=== PATIENT | female | born 1965 | race Caucasian/White ===

== ENCOUNTER 2022-08-24 18:04 | Emergency (ER) | payer BC, SELFPAY ==
--- NOTE | ~2022-08-24 | XR_ITS ---
EXAM: XR foot LT min 3V DATE: 08/24/2022 18:39 HISTORY: Dorsal, plantar and lateral left foot pain x 2 days. . COMPARISON: None available. FINDINGS: Normal mineralization. Nondisplaced transverse fracture of the proximal fourth metatarsal. No lytic or blastic lesion. Mild degenerative change at the first MTP joint and in the midfoot. Plan tar and Achilles enthesopathy. No erosion or periosteal change. Soft tissues within normal limits. IMPRESSION: Nondisplaced transverse fracture in the proximal fourth metatarsal. Reviewed, dictated and finalized at location K.
[2022-08-24 18:16] VITALS: BP 128/68; PULSE 72; RESP 16; TEMP 36.6; O2SAT 99
--- NOTE | 2022-08-24 18:29 | ED.LOWEXIN ---
HPI - Extremity Injury (Lower) General Chief Complaint: Extremity Injury, Lower Stated Complaint: left foot pain Source: patient and RN notes reviewed History of Present Illness HPI Narrative: 57-year-old female presents to urgent care with complaints of left dorsal foot pain since this morning. Patient states she was walking when she felt and heard a pop in her left dorsal foot. Patient states at that time she had pain radiate up her foot and leg. Patient does report a history of a spontaneous pelvic fracture 1 year ago. Patient denies any other injuries. Patient has taken Advil and applied ice with minimal relief. Some parts of this dictation were generated by voice recognition software and may contain typographical and/or grammatical inaccuracies. Related Data Home Medications Medication Instructions Recorded Confirmed meloxicam 15 mg tablet 15 mg PO DAILY 08/24/22 08/24/22 plecanatide 3 mg tablet (Trulance) 3 mg PO DAILY 08/24/22 08/24/22 Allergies Allergy/AdvReac Type Severity Reaction Status Date / Time No Known Allergies Allergy Unverified 08/13/21 12:46 Review of Systems Review of Systems: CONSTITUTIONAL: Denies fever, chills, or sweats. EYES: Denies visual changes, redness, or discharge. ENT: Denies otalgia and sore throat CARDIOVASCULAR: Denies chest pain, palpitations, or edema. RESPIRATORY: Denies cough or dyspnea. GASTROINTESTINAL: Denies abdominal pain, nausea, vomiting, or diarrhea. GENITOURINARY: Denies dysuria or hematuria. SKIN: Denies rash or itching. MUSCULOSKELETAL: Left foot pain NEUROLOGIC: Denies headache, numbness, or weakness. Pertinent positives per HPI. PMFSH Comments At the time of my signature, I reviewed and agree with the nursing past medical, surgical, social, and family history. There is no relevant family history pertinent to the patient complaint. Exam Narrative: GENERAL: This is a well-nourished, well-developed patient, in no apparent distress. HEAD: normocephalic, atraumatic. EYES: Sclera clear/white. Vision is grossly intact. EARS: External ears normal, auditory canals clear and without drainage. Hearing grossly intact. NOSE: External nose normal with no obvious nasal discharge, nares without redness, no rhinorrhea. THROAT: Mucous membranes moist, posterior pharynx clear. NECK: Neck supple, non-tender without lymphadenopathy, masses or thyromegaly. CARDIOVASCULAR: Regular rate RESPIRATORY: No respiratory distress SKIN: warm, intact with no suspicious lesions or rash, good texture and turgor. NEURO: awake, alert, and oriented to person, place and time. There were no obvious focal neurologic abnormalities. EXTREMITIES: No clubbing, cyanosis, or edema. No joint tenderness, effusion, or edema noted. Course Course Level of Care: Express Care Visit Vital Signs Vital signs: Vital Signs Temperature 98 F 08/24/22 18:16 Pulse Rate 72 08/24/22 18:16 Respiratory Rate 16 08/24/22 18:16 Blood Pressure 128/68 08/24/22 18:16 Pulse Oximetry 99 08/24/22 18:16 Oxygen Delivery Room Air 08/24/22 18:16 Temperature 98 F 08/24/22 18:16 Pulse Rate 72 08/24/22 18:16 Respiratory Rate 16 08/24/22 18:16 Blood Pressure 128/68 08/24/22 18:16 Pulse Oximetry 99 08/24/22 18:16 Oxygen Delivery Room Air 08/24/22 18:16 Reviewed MDM - Extremity Injury (Lower) MDM Narrative Medical decision making narrative: Use the RICE method at home. May take ibuprofen and/or Tylenol if needed. 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 ? ADM Date: 08/24/22Attending Dr: Ordering Physician: Peg Becerra
== END 2022-08-24 19:14 | disposition home or self-care (01) ==
PROVIDERS: Emergency Provider Nurse Practitioner Family
DX: S92.345A Nondisplaced fracture of fourth metatarsal bone, left foot, initial encounter for closed fracture (principal); X58.XXXA Exposure to other specified factors, initial encounter; Y93.01 Activity, walking, marching and hiking
CPT/HCPCS: 73630; 99214; G0463

== ENCOUNTER 2023-03-10 17:35 | Emergency (ER) | payer BC, SELFPAY ==
--- NOTE | ~2023-03-10 | XR_ITS ---
EXAMINATION: XR foot LT min 3V DATE: 03/10/2023 17:56 INDICATION: Left foot pain TECHNIQUE: Dorsoplantar, lateral, and 2 oblique views of the left foot were obtained. COMPARISON: 08/24/2022 FINDINGS: There are healing neck fractures of the proximal third and fourth metatarsals and in the mi d fifth metatarsal. No acute fracture is identified. 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 Posterior and plantar calcaneal enthesophytes are noted. IMPRESSION: 1. Healing metatarsal fractures without acute osseous abnormality identified. Reviewed, dictated and finalized at location F.
[2023-03-10 17:50] VITALS: BP 155/90; PULSE 79; RESP 16; TEMP 36.3; O2SAT 99
--- NOTE | 2023-03-10 18:30 | ED.GENADULT ---
HPI - General Adult General Chief complaint: Extremity Injury, Lower Stated complaint: Left Foot Pain Time Seen by Provider: 03/10/23 18:31 Source: patient, RN notes reviewed and old records reviewed Mode of arrival: ambulatory Limitations: no limitations History of Present Illness HPI narrative: 49-year-old female presents to the [facility] with complaints of left medial foot pain. Has a history of fractures from several months ago to the mid and lateral foot. Denies any known injuries. Patient states she has had fractures ?just happened. Related Data Home Medications Medication Instructions Recorded Confirmed meloxicam 15 mg tablet 15 mg PO DAILY 08/24/22 08/24/22 Allergies Allergy/AdvReac Type Severity Reaction Status Date / Time No Known Allergies Allergy Unverified 08/13/21 12:46 Review of Systems Review of Systems: All systems reviewed & are unremarkable except as noted in HPI and below Constitutional: Constitutional: Reports no additional constitutional complaints Eyes: Eyes: Reports no additional eye complaints ENT: Reports system reviewed and no additional complaints, except as documented Cardiovascular: Cardiovascular: Reports no additional cardiovascular complaints, Denies chest pain and Denies dyspnea Respiratory: Respiratory: Reports no additional respiratory complaints, Denies chest congestion, Denies cough and Denies dyspnea Gastrointestinal: Gastrointestinal: Reports no additional gastrointestinal complaints, Denies abdominal pain, Denies nausea and Denies vomiting Musculoskeletal: Musculoskeletal: Reports as per HPI Integumentary/Breasts: Skin/Breast: Reports system reviewed and no additional complaints, except as docu Neurologic: Reports system reviewed and no additional complaints, except as documented Psychiatric: Psychiatric: Reports no additional psychiatric complaints Allergic/Immunologic: Allergic/Immunologic: Reports no additional allergic/immunologic complaints PMFSH Comments At the time of my signature, I reviewed and agree with the nursing past medical, surgical, social, and family history. There is no relevant family history pertinent to the patient complaint. Exam Const: General: cooperative, healthy appearing, comfortable, no acute distress, well developed, alert and well nourished Nutritional Appearance: well nourished Orientation/consciousness: patient oriented x3 Limitations: no limitations HENMT: Head: normal to inspection Ears: hearing grossly normal bilaterally and external ears normal Face/Nose/Sinus: Normal external nose present, Normal nares present, Normal nasal mucous membranes and turbinates present, normal facial exam and face symmetric Face and sinus: normal facial exam and face symmetric Mouth: Yes Normal oral and palatal mucosa present, Yes lip normal and Yes moist mucous membranes Throat: posterior oropharynx normal and uvula midline Eyes: General: appearance normal, both eyes and all related structures Alignment and Position: alignment normal Periorbital: periorbital findings normal Pupils: Equal, round and reactive pupils present EOM: EOMs intact bilaterally Neck: Neck: normal visual inspection, full ROM, no lymphadenopathy and no meningeal signs Chest: Chest palpation & inspection: normal inspection of the chest Resp: Effort & Inspection: normal respiratory effort and able to speak in complete sentences Auscultation: clear to auscultation bilaterally, no crackles, no rales, no rhonchi and no wheezes Cardio: Rate: regular rate Rhythm: regular rhythm Back/Spine/Pelvis: Cervical Spine: cervical ROM normal Skin: General skin exam: normal color and no rashes or lesions noted Lesions: no lesions Rashes: no rashes Wounds: no wounds Neuro: General: patient oriented x3, gait normal, tone normal, moves all extremities and no meningeal signs Cranial nerves: Yes Equal, round and reactive pupils present Cognition (Neuro): normal cognition Speech:
== END 2023-03-10 18:43 | disposition home or self-care (01) ==
PROVIDERS: Emergency Provider Nurse Practitioner
DX: M79.672 Pain in left foot (principal); Z87.81 Personal history of (healed) traumatic fracture
CPT/HCPCS: 73630; 99213; G0463

== ENCOUNTER 2023-09-01 08:50 | Emergency (ER) | payer BC, SELFPAY ==
--- NOTE | ~2023-09-01 | XR_ITS ---
[XR ribs LT 2V w CXR 2V ] INDICATION: Left rib pain after fall TECHNIQUE: Frontal projection of the upper left ribs, frontal projection of the lower left ribs, obli que projection of all the left ribs, frontal inspiratory chest x-ray for interpretation. FINDINGS: There are no displaced rib fractures identified. There are no soft tissue abnormality see n. The lungs are clear. IMPRESSION: 1:No acute displaced rib fractures. Reviewed, dictated and finalized at location A.
[2023-09-01 09:08] VITALS: BP 119/71; PULSE 64; RESP 16; TEMP 36.6; O2SAT 100
--- NOTE | 2023-09-01 09:28 | ED.GENADULT ---
HPI - General Adult General Chief complaint: Fall Stated complaint: Fall Injury/Chin/Hands/Left Rib Pain Time Seen by Provider: 09/01/23 09:17 Source: patient, RN notes reviewed and old records reviewed Mode of arrival: ambulatory Limitations: no limitations History of Present Illness HPI narrative: 58-year-old [facility] to [facility]p fall onto asphalt at 0500 while walking. Pt complaint left posterior upper arm discomfort, left rib pain that is worse with movement. Pt endorses also striking chin during fall. Patient able to ambulate to exam room with steady gait. Patient able to speak in full sentences. No signs acute distress. Related Data Home Medications Medication Instructions Recorded Confirmed meloxicam 15 mg tablet 15 mg PO DAILY 08/24/22 09/01/23 omeprazole 20 mg capsule,delayed 20 mg PO DAILY 09/01/23 09/01/23 release phentermine 8 mg tablet (Lomaira) 8 mg PO DAILY 09/01/23 09/01/23 plecanatide 3 mg tablet (Trulance) 3 mg PO DAILY PRN Migraine Headache 09/01/23 09/01/23 Allergies Allergy/AdvReac Type Severity Reaction Status Date / Time No Known Allergies Allergy Unverified 08/13/21 12:46 Review of Systems Review of Systems: All systems reviewed & are unremarkable except as noted in HPI and below Constitutional: Constitutional: Reports no additional constitutional complaints Eyes: Eyes: Reports no additional eye complaints ENT: Reports as per HPI and Reports facial pain (chin ) Cardiovascular: Cardiovascular: Reports no additional cardiovascular complaints, Denies chest pain and Denies dyspnea Respiratory: Respiratory: Reports no additional respiratory complaints, Denies cough and Denies dyspnea Musculoskeletal: Musculoskeletal: Reports as per HPI, Denies abnormal gait, Denies back pain, Denies deformity and Reports arthralgias (left ribs) Neurologic: Reports system reviewed and no additional complaints, except as documented Psychiatric: Psychiatric: Reports no additional psychiatric complaints PMFSH Comments At the time of my signature, I reviewed and agree with the nursing past medical, surgical, social, and family history. There is no relevant family history pertinent to the patient complaint. Exam Const: General: cooperative, healthy appearing, comfortable, no acute distress, alert and well nourished Nutritional Appearance: well nourished Orientation/consciousness: patient oriented x3 Limitations: no limitations HENMT: Head: normal to inspection Ears: external ears normal Face/Nose/Sinus: Normal external nose present, Normal nares present, ecchymosis (mentum), No erythema and edema (mentum) Face and sinus: normal facial exam, no erythema and no edema Mouth: Yes Normal oral and palatal mucosa present Eyes: General: appearance normal, both eyes and all related structures Neck: Neck: normal visual inspection, full ROM and no meningeal signs Lymphatic: no lymphadenopathy noted and no lymphedema noted Chest: Chest palpation & inspection: normal inspection of the chest Resp: Effort & Inspection: normal respiratory effort, able to speak in complete sentences, normal respiratory pattern, no audible wheezes, not tachypneic, No prolonged expiratory phase and symmetric chest movement Auscultation: clear to auscultation bilaterally Other: Tenderness left ribs Cardio: Jugular venous distension: no JVD Rate: regular rate Rhythm: regular rhythm Back/Spine/Pelvis: Cervical Spine: cervical ROM normal Skin: General skin exam: normal color, no rashes or lesions noted and turgor normal Neuro: General: patient oriented x3, gait normal, moves all extremities and no meningeal signs Speech: normal speech Gait exam (Neuro): Normal gait present Extrem: General: normal to inspection, full ROM, capillary refill normal, no cyanosis and no edema Psych: Appearance: grossly normal and well kempt Course Course Emergency Course: Some parts of this dictation were generated by voice recogn
== END 2023-09-01 09:53 | disposition home or self-care (01) ==
PROVIDERS: Emergency Provider Nurse Practitioner Family
DX: M79.622 Pain in left upper arm (principal); S20.212A Contusion of left front wall of thorax, initial encounter; S00.83XA Contusion of other part of head, initial encounter; W19.XXXA Unspecified fall, initial encounter; Q79.60 Ehlers-Danlos syndrome, unspecified
CPT/HCPCS: 71046; 71100; 99213; G0463

== ENCOUNTER 2024-11-26 13:27 | Outpatient (CLI) | payer BC, SELFPAY ==
--- NOTE | ~2024-11-26 | XR_ITS ---
Left foot Technique: AP and lateral views were obtained. Clinical History: Lateral foot pain COMPARISON: 03/10/2023 Findings: No acute fracture or dislocation is seen. Healed fracture deformity the midshaft of the fif th metatarsal noted. Probable additional healed fracture fourth of the third and fourth metatarsal sh afts. Osseous alignment is anatomic. Plantar calcaneal spur present. Joint spaces are preserved witho ut erosive or degenerative change. Soft tissues are unremarkable. Impression: No acute abnormality. Healed fracture deformities of the third, fourth, and fifth metatarsal shafts. Reviewed, dictated and finalized at location . Impression: No acute abnormality. Healed fracture deformities of the third, fourth, and fifth metatarsal shafts.
--- OUTSIDE RECORDS SUMMARY | 2024-11-26 13:33 | XMS_ITS | Referral Summary ---
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 Name Role Phone Priscilla Plummer NP Primary Care Provide r Jake Frazier MD Unavailable Jose Martin KunzM Unavailable Elio Ghotra OT Unavailable Unavailable Luis Carlos Lopez MD Unavailable [phone] Encounters Date Type Department Care Team Description 11/20/2024 Telephone [facility] Surgery [facility] 6th [place] [address] Annmarie Ding RN 10/25/2024 7:40 AM CDT - 10/25/2024 11:59 PM CDT Hospital Encounter [facility] [address] [place] [address] [address] [place] [address] Discharge Disposition: Discharge to home or self care 10/25/2024 9:00 AM CDT Office Visit [facility] [address] [place] [address] [address] [place] [address] Iliana Nuñez PA Aftercare following right knee joint replacement surgery (Primary Dx) 10/15/2024 Documentation [facility] Occupational Therapy [address] [place] [address] Jodie Dc, SASKIA 09/26/2024 7:45 AM CDT Therapy [facility] Physical Therapy - [place] [address] Car Kilpatrick, PT S/P total knee arthroplasty, right (Primary Dx) 09/24/2024 7:45 AM CDT Therapy [facility] Physical Therapy - [place] [address] Car Kilpatrick, PT S/P total knee arthroplasty, right (Primary Dx) 09/21/2024 1:45 PM CDT Therapy [facility] Physical Therapy - [place] [address] Car Kilpatrick, PT S/P total knee arthroplasty, right (Primary Dx) 09/20/2024 1:00 PM CDT Telemedicine [facility] [address] [facility] [address] [place] [address] Iliana Nuñez PA Aftercare following right knee joint replacement surgery (Primary Dx) 09/18/2024 8:30 AM CDT Therapy [facility] Physical Therapy - [place] [address] Car Kilpatrick, PT S/P total knee arthroplasty, right (Primary Dx) 09/13/2024 10:15 AM CDT Therapy [facility] Physical Therapy - [place] [address] Car Kilpatrick, PT S/P total knee arthroplasty, right (Primary Dx) 09/11/2024 7:00 AM CDT Therapy [facility] [place] [address] Car Kilpatrick, PT S/P total knee arthroplasty, right (Primary Dx) 09/07/2024 [facility] Post Discharge Follow up phone call [facility] Surgery Care [address] [place] [address] Jessica Becca R. 09/04/2024 Plan of Care Documentation [facility] Physical Therapy - [place] [address] 09/04/2024 1:45 PM CDT Therapy [facility] Physical Therapy - [place] [address] Frank Fischer, PT S/P total knee arthroplasty, right (Primary Dx) 08/31/2024 Orders Only [facility] Medical [facility] Orthopedics and Sports Medicine [address] [place] [address] [address] [place] [address] Iliana Nuñez PA 08/30/2024 Documentation [facility] Social Work [address] [place] [address] Ayesha Lucio MSW 08/30/2024 Orders Only [facility] Medical [facility] Orthopedics and Sports Medicine [address] [place] [address] [address] [place] [address] Iliana Nuñez PA S/P total knee arthroplasty, right (Primary Dx) 08/30/2024 Telephone [facility] Orthopedics and Sports Medicine [address] [place] [address] [address] [place] [address] Iliana Nuñez PA 08/29/2024 7:17 AM CDT - 08/30/2024 10:47 AM CDT Hospital Encounter [facility] Surgery Care [address] [place] [address] Luis Carlos Lopez MD Primary osteoarthritis of right knee Discharge Disposition: Discharge to home or self care 08/29/2024 10:00 AM CDT - 08/29/2024 12:30 PM CDT Surgery [facility] Operating Room [address] [place] [address] Luis Carlos Lopez MD Right Total Knee Arthroplasty with Patella Resurfacing 08/29/2024 9:43 AM CDT Anesthesia Event [facility] Operating Room [address] [place] [address] Hamida Mak MD Reynolds, Ethan Emerson, MD from Last 3 Months Allergies Active Allergy Reactions Criticality Noted Date Comments Ciprofloxacin Other (See comments) Low 05/01/2024 E[facility]os-Danler Medications omeprazole (PriLOSEC) 20 mg capsule Take 1 capsule (20 mg total) by mouth daily as needed (heartburn) 08/25/19 23 Active ALPRAZolam (NIRAVAM) 0.25 mg disintegrating tablet Take 1 tablet (0.25 mg total) by mouth nightly as needed for anxiety Active plecanatide (Trulance) 3 mg tablet Take 1 tablet (3 mg total) by mouth daily as needed (constipation) Active rizatriptan (MAXALT) 10 mg tablet Take 1 tablet (10 mg total) by mouth once as needed for migraine May repeat in 2 hours if unresolved. Do not exceed 30 mg in 24 hours. Active cholecalciferol (VITAMIN D-3) 1,000 unit capsule Take 1 capsule (1,000 Units total) by mouth daily before breakfast Active multivitamin with minerals tablet Take 1 tablet by mouth daily before breakfast Active magnesium gluconate 200 mg tablet Take 1 tablet (200 mg total) by mouth nightly Active ascorbic acid (VITAMIN C) 500 mg tablet,chewableInd ications:Vitamin deficiency prevention Take 1 tablet/chew tab (500 mg total) by mouth daily 30 tablet/chew tab 08/31/19 25 Active aspirin 81 mg enteric coated tabletIndications: Deep Vein Thrombosis Prevention Take 1 tablet (81 mg total) by mouth 2 (two) times a day 84 tablet 08/31/19 25 Active Additional Information Patient not taking.Reported on 10/25/2024 celecoxib (CeleBREX) 200 mg capsuleIndications :Pain Take 1 capsule (200 mg total) by mouth 2 (two) times a day 84 capsule 08/31/19 25 Active Additional Information Patient not taking.Reported on 10/25/2024 ondansetron ODT (ZOFRAN-ODT) 4 mg disintegrating tabletIndications: nausea and vomiting Take 1 tablet (4 mg total) by mouth every 6 (six) hours as needed for nausea or vomiting 20 tablet 2 08/31/19 25 Active Additional Information Patient not taking.Reported on 10/25/2024 oxyCODONE-acetamin ophen (PERCOCET) 5-325 mg per tabletIndications: Pain Take 1 tablet by mouth every 4 (four) hours as needed for pain 40 tablet 08/31/19 25 Active Additional Information Patient not taking.Reported on 10/25/2024 senna-docusate (PERICOLACE) 8.6-50 mgIndications:cons tipation Take 2 tablets by mouth 2 (two) times a day 60 tablet 2 08/31/19 25 Active Additional Information Patient not taking.Reported on 10/25/2024 traMADoL (ULTRAM) 50 mg tablet Take 1 tablet (50 mg total) by mouth every 6 (six) hours as needed for pain 30 tablet 09/01/19 25 Active Active Problems Problem Noted Date Diagnosed Date Arthritis of carpometacarpal (CMC) joint of left thumb 11/08/2024 Aftercare following right knee joint replacement surgery 09/19/2024 Osteoarthritis of carpometac arpal (CMC) joint of both thumbs 04/27/2024 Arthritis of carpometacarpal (CMC) joints of bot h thumbs 04/27/2024 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 On meloxicam. Continue joint protection. Assessment & Plan (04/17/2024 11:12 AM GLASSWARE DEFECT REPAIRER): 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 On meloxicam. Continue joint protection. Polyarthralgia 06/14/2023 Overview (04/17/2024): Labs 06/14/2023: CBC: MPV 12.6, but otherwise WNL; CMP: Glucose 101, but otherwise WNL; CRP/ESR WNL; hepatitis-B/C WNL; vitamin-D 28, but otherwise WNL; PTH WNL, ionized calcium 5.1 WNL, Avise 06/16/2023: Positive HEVER by Matilde only, positive thyroglobulin IgG Avise 04/03/2024: Positive thyroglobulin, positive TPO, but otherwise negative Avise Labs 03/30/2024: CBC: Platelets 422, otherwise WNL; CMP fallen CO2 33, but otherwise WNL; CRP 54.3 milligrams/liter and ESR of 60. US right hand/wrist (06/23/23): Marked spurring in the 1st CMC joint. Moderate spurring in the lunate. Moderate synovial thickening in the 2nd PIP joint. No significant joint effusions, power doppler, or erosive changes appreciated on US examination. Xray bilat hands reveal degenerative changes in bilat wrists. Xray bilat feet reveal bilat hallux valgus with calcaneal spurs and right 1st MTP OA and left 2nd-5th stress fractures X-ray L-spine/SI joints 03/30/2024: mild retrolisthesis of L3 through L5. Mild L1-L4, severe L4-L5 and mild L5-S1 degenerative disc disease with severe inferior lumbar facet OA. Left anterior pelvic fixation screws noted Right foot MRI without contrast 04/04/2024: Degenerative changes at the 1st MTP joint with joint space narrowing. May be peripheral periarticular erosion raising question of gout but no calcified tophi seen. Diffuse soft tissue swelling over the dorsum of the foot without focal hematoma Assessment & Plan (05/03/2024 2:49 PM GLASSWARE DEFECT REPAIRER): Aleta is a pleasant 59-year-old female that initially presented to our office for re-evaluation on 03/30/2024. In mid February 2024, she developed sudden-onset pain, stiffness, swelling involving the right foot. X-ray per podiatry was unrevealing for fracture. Went to the ED on 2 separate occasions with negative lower extremity Doppler assessing for DVT. She was recently evaluated with Cardiology and had a repeat lower extremity Doppler, which was also negative for DVT. Was prescribed a prednisone taper from 60 mg daily along with antibiotics in the ED without significant benefit. She continued to experience chronic pain, stiffness, and swelling in the right foot/ankle along with discomfort in the bilateral knees (R>L), elbows, wrists/hands with chace LE edema (worse on the right). Symptoms most notable in the morning with a.m. stiffness for 2-3 hours. Symptoms worsened with use. Had been managing symptoms with meloxicam 15 mg daily. Repeat Avise 04/03/2024 displayed positive thyroglobulin and TPO antibodies with no other significant autoantibodies. Labs 03/30/2024 displayed a CRP of 54.3 milligrams/liter and ESR 60. Right foot MRI without contrast, as above, displayed degenerative change in the 1st MTP joint with possible periarticular erosion along with diffuse soft tissue swelling. L- spine/SI joint x-ray 03/30/2024 displayed mild retrolisthesis of L3 through L5 with mild L1-L4, severe L4-L5, and mild L5-S1 degenerative disc disease with severe inferior lumbar facet OA. Left anterior pelvic fixation screws noted. No evidence for sacroiliitis. We have had difficulty assessing the cause for current symptoms. Her lack of response to high dose of prednisone made a inflammatory arthritis less likely. She has no current autoantibodies to suggest an inflammatory arthritis, although has had elevations in inflammatory markers. At last visit, we did try Kenalog IM injection, which offered partial relief. Unfortunately, she continues to have scattered tenderness across many of her joints with no obvious joint synovitis. At this time, see no obvious evidence to suggest an underlying autoimmune disease. Suspect that EDS in degenerative arthritis contributing to her joint arthralgias. Will have follow up as needed or if any new symptoms arise. Seen with Dr. Frazier. Assessment & Plan (04/17/2024 11:32 AM GLASSWARE DEFECT REPAIRER): Aleta is a pleasant 58-year-old female that presented to our office for re- evaluation on 03/30/2024. In mid February, she developed sudden-onset pain, stiffness, swelling involving the right foot. X-ray per podiatry was unrevealing for fracture. Went to the ED on 2 separate occasions with negative lower extremity Doppler assessing for DVT. He was recently evaluated with Cardiology and had a repeat lower extremity Doppler, which was also negative for DVT. Was prescribed a prednisone taper from 60 mg daily along with antibiotics in the ED without significant benefit. She continues to note chronic pain, stiffness, and swelling in the right foot/ankle along with discomfort in the bilateral knees (R>L), elbows, wrists/hands with chace LE edema (worse on the right). Symptoms are most notable in the morning with a.m. stiffness for 2-3 hours. Symptoms are worsened with use. Has been managing symptoms with meloxicam 15 mg daily. Repeat Avise 04/03/2024 displayed positive thyroglobulin and TPO antibodies with no other significant autoantibodies. Labs 03/30/2024 displayed a CRP of 54.3 milligrams/liter and ESR 60. Right foot MRI without contrast, as above, displayed degenerative change in the 1st MTP joint with possible periarticular erosion along with diffuse soft tissue swelling. L-spine/SI joint x-ray 03/30/2024 displayed mild retrolisthesis of L3 through L5 with mild L1-L4, severe L4-L5, and mild L5-S1 degenerative disc disease with severe inferior lumbar facet OA. Left anterior pelvic fixation screws noted. No evidence for sacroiliitis. Difficult to assess the cause for her current symptoms at this time. Her lack of response to high doses of prednisone does make an inflammatory arthritis less likely. Has no current autoantibodies to suggest an inflammatory arthritis, although does have elevations in inflammatory markers. Would like to trial a Kenalog IM injection to monitor for potential benefit. Due to burden of disease, will administer kenalog 100 mg IM injection, in office, today. If she has lack of response to Kenalog IM injection, would consider right knee MRI, although is scheduled to see knee Orthopedics on 04/24. Follow-up 2 weeks. Sooner if needed. Seen with Dr. Frazier. >55 minutes spent reviewing patient's records, gathering pertinent medical history, performing physical exam, counseling/educating patient about diagnosis and treatment plan, and documenting today's office visit in the EMR. Assessment & Plan (03/30/2024 2:09 PM GLASSWARE DEFECT REPAIRER): Aleta is a pleasant 58-year-old female previously seen in our office 05/2023, which she was previously noted to have degenerative arthritis (most notable in the cmc joints) along with hypermobility. She is presenting for re-evaluation. In mid February, she developed sudden-onset pain, stiffness, swelling in the right foot. X-ray per podiatry was unrevealing for a fracture. Has been to the ED on 2 separate occasions with negative lower extremity Doppler assessing for DVT. Was prescribed prednisone taper from 60 mg daily along with antibiotics at the ED without significant benefit. Otherwise, she continues to note discomfort in the bilateral CMC joints/wrists, R>L knee, elbows, lower back with inflammatory symptoms. Has considerable swelling in the right lower extremity, including the right foot/ankle and right knee along with 2+ right lower extremity edema. Otherwise, scattered swollen joints, as above. There is concern for an inflammatory arthritis at this time, although would be atypical given her lack of response to high dose of prednisone. Will evaluate further with appropriate serologies and proceed with right foot/ankle MRI ordered for Podiatry. Follow-up 2 weeks. Sooner if needed. Seen with Dr. Frazier. >60 minutes spent reviewing patient's records, gathering pertinent medical history, performing physical exam, counseling/educating patient about diagnosis and treatment plan, and documenting today's office visit in the EMR. Assessment & Plan (06/28/2023 3:34 PM GLASSWARE DEFECT REPAIRER): Aleta is a pleasant 58-year-old female presented for further evaluation regarding chronic joint pain in the hands/wrists (CMC>remaining joints), feet, hip/groin, and lower back for the past year plus. Denies inflammatory symptoms. Has tried several prescription NSAIDs without benefit. Otherwise, has chronic sicca symptoms and occasional aphthous ulcers with no other recent systemic complaints. Has no obvious synovitis on exam. Avise 06/16/2023 displayed a positive HEVER by Matilde only with positive thyroglobulin and no other significant autoantibodies with CRP/ESR WNL. Right hand/wrist ultrasound displayed 1st CMC spurring with moderate spurring of the lunate and no other significant inflammatory findings. Degenerative changes were noted in the bilateral wrists along with bilateral hallux valgus and calcaneal spurs along with right 1st MTP OA and left 2nd through 5th stress fractures on x-rays. See no evidence to suggest an underlying inflammatory arthritis at this time. Regarding her CMC oa, recommended physical therapy for all to be fitted for CMC bracing. Could consider CMC intra-articular injections, if symptoms persist. Continue to follow with pain management regarding chronic lower back pain. Will also send to Physical therapy regarding chronic lower back pain and hypermobility. Will have her otherwise follow up as needed or if any new symptoms arise. Assessment & Plan (06/14/2023 2:43 PM GLASSWARE DEFECT REPAIRER): Aleta is a pleasant 58-year-old female presenting for further evaluation regarding chronic joint pain in the hands/wrists (CMC>remaining joints), feet, hip/groin, and lower back for the past year plus. Denies inflammatory symptoms. Has tried several prescription NSAIDs without benefit. Otherwise, has chronic sicca symptoms and occasional aphthous ulcers with no other recent systemic complaints. Questionable fullness of the right 2nd and 3rd MCP joint with few tender joints, as above. At this, suspect the majority of her joint complaints are due to mechanical/degenerative causes. With that said, inflammatory arthritis certainly does remain possible. Will evaluate further with appropriate serologies, radiographs, right hand/wrist ultrasound. Follow-up 2 weeks. Sooner if needed. Seen with Dr. Frazier. Osteoporosis 06/14/2023 Assessment & Plan (06/28/2023 3:33 PM GLASSWARE DEFECT REPAIRER): Most recent DEXA scan displayed osteopenia. With that said, given numerous fragility fractures, this appears most consistent with osteoporosis. Given her osteoporosis and fragility fracture history, would recommend treatment with Evenity, Forteo, or Tymlos. Will check vitamin-D level and few additional labs today. Is scheduled to see bone health in January. Assessment & Plan (06/14/2023 2:45 PM GLASSWARE DEFECT REPAIRER): Most recent DEXA scan displayed osteopenia. With that said, given numerous fragility fractures, this appears most consistent with osteoporosis. Given her osteoporosis and fragility fracture history, would recommend treatment with Evenity, Forteo, or Tymlos. Will check vitamin-D level and few additional labs today. Is scheduled to see bone health in January. Vitamin D deficiency 11/09/2022 Assessment & Plan (06/28/2023 3:33 PM GLASSWARE DEFECT REPAIRER): Recent labs displayed mildly low vitamin-D. On OTC calcium and vitamin-D. Recommended checking her current OTC dosing, as will likely need to increase this. 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 Patient reports multiple spontaneous fractures Plan: Continue calcium and vitamin D She will be doing bone density next month and she will get me a copy The presence of bone fractures is not explained by osteopenia and may need further investigations. I recommend that she will be referred to bone health specialist @ [facility] or [facility] if bone density still stable . Patient understands and agrees with above plan. Abdominal pain 03/04/2021 Arthralgia of multiple joints 10/25/2018 LOYDA (generalized anxiety disorder) 10/25/2018 Nasal polyp 10/25/2018 Hypothyroidism, adult 07/24/2014 Overview (06/24/2022): Begin supplement 07/2014. Some tingling of the fingers Begin supplement 07/2014. Some tingling of the fingers Deviated nasal septum 02/10/2012 GERD (gastroesophageal reflux disease) 0 Insomnia 10/24/2009 Depression 12/29/2008 Arthritis 10/18/2008 Overview (06/24/2022): Wrists, elbows, and knees Wrists, elbows, and knees Migraine without aura 10/18/2008 Resolved Problems Problem Noted Date Diagnosed Date Resolved Date Primary osteoarthritis of right knee 04/24/2024 09/19/2024 Social History Tobacco Use Types Packs/Day Years Used Date Smoking Tobacco: Never Smokeless Tobacco: Never Tobacco Cessation:Counseling Given: Not Answered Alcohol Use Standard Drinks/Week Comments No 0 (1 standard drink = 0.6 oz pur e alcohol) AUDIT-C Answer Date Recorded Q1: How often do you have a drink containing alc ohol? Monthly or less 08/29/2024 Q2: How many drinks containi ng alcohol do you have on a typical day when you are drinking? 1 or 2 08/29/2024 Q3: How often do you have si x or more drinks on one occasion? Never 08/29/2024 PHQ-2 Answer Date Recorded PHQ-2 Total Score (If total score is 3 or more points, staff should administer the PHQ-9) 0 08/29/2024 Personal Safety Answer Date Recorded Have you ever been in or are you currently in a harmful physical or emotional relationship or is someone making you feel afraid or unsafe? 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 Not on file Not on file Not on file Last Filed Vital Signs Vital Sign Reading Time Taken Comments Blood Pressure 137/77 10/25/2024 8:48 AM CDT Pulse 78 10/25/2024 8:48 AM CDT Temperature 35.8 C (96.5 F) 08/30/2024 7:32 AM CDT Respiratory Rate 18 08/30/2024 7:32 AM CDT Oxygen Saturation 98% 08/30/2024 7:32 AM CDT Inhaled Oxygen Concentration - - Weight 103 kg (227 lb) 10/25/2024 8:48 AM CDT Height 171.5 cm (5' 7.5) 10/25/2024 8:48 AM CDT Body Mass Index 35.03 10/25/2024 8:48 AM CDT Plan of Treatment Upcoming Encounters Date Type Department Care Team (Latest Contact Info) Description 01/10/2025 7:30 AM CDT Hospital Encounter [facility] [address] [place] [id number] Najma Wagner MD PhD [address] [place] [address] 01/10/2025 7:30 AM CDT - 01/10/2025 10:20 AM CDT Surgery [facility] Operating [facility] [address] [place] [id number] Najma Wagner MD PhD [address] [place] [address] TRAPEZIECTOMY - INTERNAL BRACE - LEFT thumb trapeziectomy with tendon suspensionplasty and Arthrex internal brace augmentation Scheduled Procedures Name Priority Associated Diagnoses Date/Ti me TRAPEZIECTOMY - INTERNAL BRACE Arthritis of carpometacarpal (CMC) joint of left thumb 01/10/2025 7:30 AM CDT Medical Devices Implanted Type Area Line Person Device Identifier Shelf Expiration Date Model / Serial / Lot [employer] Suture Snyder Knotless Fibertak Resorbable [id number] - S0 - [id number] Implanted:Qty: 1 on 05/10/2024 by Najma Wagner MD PhD at [facility] Other - see comments Right: Hand [employer] [id number] 01/13/2029 [id number] / 0 / [id number] [employer] Corkscrew Fiberwire 2.2mm 4mm 17.9mm 2 Needle Wire Foot Ankle 2-0 [id number] - S0 - [id number] Implanted:Qty: 1 on 05/10/2024 by Najma Wagner MD PhD at [facility] Other - see comments Right: Hand [employer] [id number] 02/12/2029 AR-1318FT / 0 / [id number] Synthes 7.3mm 8.2mm 2.9mm 130mm Cannulated Self Tap Self Drill 209.730 - [id number] Implanted:Qty: 1 on 03/01/2022 by Farhat Owens MD at [facility] Screw Synthes I 209.730 / / 209.730 [employer] Cement Bone Medium Viscosity Half Dose Hemiarthroplpasty Cmw 20gm Pmma 3322-020 - [id number] Implanted:Qty: 1 on 08/29/2024 by Luis Carlos Lopez MD at [facility] Right: Knee [employer] 12/13/2026 3322-020 / / [id number] [employer] Attune Fb Tib Base Sz 5 Por [id number] - [id number] Implanted:Qty: 1 on 08/29/2024 by Luis Carlos Lopez MD at [facility] Right: Knee [employer] [id number] 03/15/2033 [id number] / / [id number] [employer] Attune Cruciate Retain Cementless Knee Right 5 Component Femoral [id number] - [id number] Implanted:Qty: 1 on 08/29/2024 by Luis Carlos Lopez MD at [facility] Right: Knee [employer] [id number] 07/13/2034 [id number] / / [id number] [employer] Attune 32mm Cemented Medialize Knee Dome Patellar Aox Sterile [id number] - [id number] Implanted:Qty: 1 on 08/29/2024 by Luis Carlos Lopez MD at [facility] Right: Patella [employer] [id number] 06/15/2032 [id number] / / [id number] [employer] Insert Tibial Knee Fixed Rm Posterior Stabilized Attune 7mm Size 5 Polyethylene [id number] - [id number] Implanted:Qty: 1 on 08/29/2024 by Luis Carlos Lopez MD at [facility] Right: Patella [employer] 06/15/2032 [id number] / / [id number] Procedures Procedure Name Priority Date/Time Associated Diagnosis Comments XR KNEE RIGHT 3 VIEWS Schedule Routine, Read Routine (OP Routine) 10/25/2024 8:38 AM CDT Aftercare following right knee joint replacement surgery EGFR Routine 08/30/2024 3:22 AM CDT CBC WITHOUT DIFFERENTIAL Routine 08/30/2024 3:22 AM CDT BASIC METABOLIC PANEL Routine 08/30/2024 3:22 AM CDT SURGICAL PATHOLOGY Routine 08/29/2024 2: 10 PM CDT Primary osteoarthritis of right knee XR KNEE RIGHT 1 OR 2 VIEWS IP Routine 08/29/2024 11:52 AM CDT ANESTHESIA SPINAL BLOCK Routine 08/29/2024 9:58 AM CDT ARTHROPLASTY TOTAL KNEE 08/29/2024 9:22 AM CDT Primary osteoarthritis of right knee Special Needs Patella Resurfacing- [Robotic, Depuy- Attune and Patella], Velys, Cooling Unit-Polar Care, 1 Liter Beta Rinse, Pt to Stay PROTIME-INR STAT 08/29/2024 7:47 AM CDT APTT STAT 08/29/2024 7:47 AM CDT HEPATITIS C ANTIBODY Routine 06/14/2023 2:42 PM GLASSWARE DEFECT REPAIRER Polyarthralgia Osteoporosis, unspecified osteoporosis type, unspecified pathological fracture presence Encounter for long-term (current) use of medications DIGITAL MAMMOGRAPHY Routine 03/15/2014 12:37 PM CDT from Last 3 Months or Most Recently Relevant to Health Maintenance Results * XR Knee Right 3 Views (10/25/2024 8:38 AM CDT) Anatomical Region Laterality Modality Lower Extremities, Knee Right Digital Radiography Narrative 10/25/2024 9:15 AM CDT X-ray of the right knee viewed and interpreted. There is no evidence of fracture, subluxation, or bony abnormality. Knee arthroplasty in good position with no interval change. us Iliana FUNG IMG XR PROCEDURES Fin al Result * eGFR (08/30/2024 3:22 AM CDT) eGFR 90 >=60 mL/min/1. 73 m2 Comment: Interpretive Data Reference Interval Normal >/= 90 mL/min/1.73m2 Mildly decreased* 60 - 89 mL/min/1.73m2 Mildly to moderately decreased 45 - 59 mL/min/1.73m2 Moderately to severely decreased 30 - 44 mL/min/1.73m2 Severely decreased 15 - 29 mL/min/1.73m2 Kidney Failure < 15 mL/min/1.73m2 *Relative to young adult level Estimated glomerular filtration rate is determined by the 2020 CKD-EPI equation recommended by the National Kidney Foundation (A Unifying Approach to GFR Estimation: Recommendations of the NKF-ASK Task Force on Reassessing the Inclusion of Race in Diagnosing Kidney Disease, JASN 2020). The CKD-EPI equation should not be used for patients with unstable renal function and has not been validated in children and those over 70. Current interpretive data was last reviewed 2021. Blood 08/30/2024 3:22 AM CDT 08/30/2024 4:29 AM CDT us Iliana FUNG LAB BLOOD ORDERABLES Final Result [facility] Department [place] [address] * (ABNORMAL) CBC without differential (08/30/2024 3:22 AM CDT) WBC 12.29(H) 3.80 - 9.90 K/cumm Hgb 11.5(L) 11.9 - 15.5 g/dL [facility] Hct 34.1(L) 35.6 - 45.5 % [facility] Plt 248 150 - 400 K/cumm [facility] MPV 11.6 9.1 - 12.3 fL [facility] RBC 3.78(L) 3.90 - 5.20 M/cumm [facility] MCV 90.2 81.3 - 96.4 fL [facility] MCH 30.4 27.1 - 33.3 pg [facility] MCHC 33.7 32.3 - 35.7 g/dL [facility] RDW CV 12.0 11.1 - 14.9 % [facility] RDW SD 39.5 35.7 - 48.1 fL [facility] NRBC abs 0.00 0.00 - 0.01 K/cumm [facility] ([place]) Blood 08/30/2024 3:22 AM CDT 08/30/2024 4:28 AM CDT us Iliana FUNG LAB BLOOD ORDERABLES Final Result [facility] Department [place] [address] * Basic metabolic panel (08/30/2024 3:22 AM CDT) Sodium 137 135 - 145 mmol/L Potassium, pl 4.7 3.3 - 4.9 mmol/L [facility] Chloride 103 97 - 110 mmol/L [facility]) CO2 23 22 - 32 mmol/L [facility] Anion gap 12 2 - 15 mmol/L [facility] BUN 17 6 - 25 mg/dL [facility] Creatinine 0.76 0.60 - 1.10 mg/dL [facility] Glucose 157 70 - 199 mg/dL [facility] Comment: Interpretive Data Fasting glucose >/= 126 mg/dl is diagnostic for diabetes. Fasting is defined as no caloric intake for at least 8 hours. Fasting glucose between 100 mg/dl to 125 mg/dl is diagnostic of prediabetes. In a patient with classic symptoms of hyperglycemia or hyperglycemic crisis, a random glucose >/= 200 mg/dl is diagnostic for diabetes. In the absence of unequivocal hyperglycemia, results should be confirmed by repeat testing. The classification and Diagnosis of Diabetes Diabetes Care 2021; 46: S19-S40. Current interpretive data was last revised 2022. Calcium 8.8 8.5 - 10.3 mg/dL [facility] Blood 08/30/2024 3:22 AM CDT 08/30/2024 4:29 AM CDT us Iliana FUNG LAB BLOOD ORDERABLES Final Result [facility] ([place] 1 [facility] Department [place] [address] * Surgical pathology (08/29/2024 2:10 PM CDT) Tissue (Bone Fragment(s),) 08/29/2024 10:23 AM CDT Narrative PATHOLOGY [facility] ([place] - 08/31/2024 9:51 AM CDT EPIC results best viewed via link to PDF [facility] Department of Pathology [address] [place] [id number] Note to Patients: This report may contain a detailed description of human tissue sent by a health care provider to the laboratory for pathologic evaluation. The content of this report is essential for diagnosis and may provide important critical findings. This information may be unfamiliar to patients to review without a medical professional present. It is advised that the patient review this report in the presence of a health care provider who can answer questions and explain the details. Final Report Patient Name: ALETA YUN Address: [address] [place] [address] Gender: F : 1965 (Age: 59) Service: Surgery Location: [facility] Hospital #: [id number] Patient Type: [facility] OP in bed Taken: 08/29/2024 Received: 08/29/2024 Accessioned: 08/29/2024 Reported: 08/31/2024 Physician(s):Dr. Luis Carlos Lopez M.D. Diagnosis: Bone and soft tissue, right total knee arthroplasty: - Histologic changes consistent with degenerative joint disease. Alphonso Hayes MD Report Electronically Reviewed and Signed Out By Alphonso Hayes MD 08/31/2024 09:51:18 Specimen(s) Received: A: Right knee bone and tissue Microscopic Description: A decalcified section shows erosion and destruction of the articular cartilage. The marrow space appears fatty with focal hematopoietic marrow elements. Also seen are benign-appearing fragments of soft tissue, partially lined by bland synovium. There is no evidence of malignancy. The histologic changes are consistent with the clinical impression of degenerative joint disease. Clinical History: Osteoarthritis of right knee. Right total knee arthroplasty. Gross Description: The container is labeled ALETA YUN and right knee. It is a 7 x 6 x 4 cm in aggregate of irregularly-shaped fragments of bone and an approximate 10 cc aggregate of soft tissue consisting of adipose tissue, portions of menisci and some synovium. Recognizable pieces of bone include the tibial plateau and portions of femoral condyles. Some of the bone fragments are covered by articular cartilage showing varying degrees of degenerative changes that include eburnation, pitting and roughened granularity. Decalcified and represented in two cassettes. Uriah Hutchinson R.N. P.Chirag./Marizol Martinez M.D. REPORT IMAGES AND SCANNED DOCUMENTS, IF INCLUDED, ONLY VIEWABLE IN PDF VERSION OF REPORT The performance characteristics of some immunohistochemical stains, fluorescence in-situ hybridization tests and immunophenotyping by flow cytometry cited in this report (if any) were determined by the Surgical Pathology Department at [facility] as part of an ongoing quality control operator program and in compliance with federally mandated regulations drawn from the Clinical Laboratory Improvement Act of 1988 (CLIA '88). Some of these tests rely on the use of analyte specific reagents and are subject to specific labeling requirements by the US Food and Drug Administration. Such diagnostic tests may only be performed in a facility that is certified by the Department of Health and Human Services as a high complexity laboratory under CLIA '88. The FDA has determined that such clearance or approval is not necessary. This test is used for clinical purposes. It should not be regarded as investigational or for research. Nevertheless, federal rules concerning the medical use of analyte specific reagents require that the following disclaimer be attached to the report: This test was developed and its performance characteristics determined by the Surgical Pathology Department [facility]. It has not been cleared or approved by the U. S. Food and Drug Administration. Note for decalcified specimens: This assay has not been validated on decalcified tissues. Results should be interpreted with caution given the possibility of false negativity on decalcified specimens Luis Carlos Lopez MD LAB PATHOLOGY ORDERABLES Final Result [facility] ([place]) [address] [place] [id number] * XR Knee Right 1 or 2 View (08/29/2024 11:52 AM CDT) Anatomical Region Laterality Modality Lower Extremities, Knee Right Computed Radiography 08/29/2024 3:0 8 PM CDT Narrative 08/29/2024 3:11 PM CDT EXAM DESCRIPTION: XR KNEE RIGHT 1 OR 2 VIEWS REASON FOR STUDY: in pacu s/p right tka Right knee osteoarthritis FINDINGS: Two views submitted with comparison 04/24/2024. Right total knee arthroplasty is in near anatomic alignment. No acute fracture. Soft tissue swelling is present. IMPRESSION: Interval right total knee arthroplasty in near anatomic alignment. THIS IS AN ELECTRONICALLY VERIFIED FINAL REPORT 08/29/2024 3:11 PM - Electronically signed by Jaxson Segura M.D. MF: [id number] Report ID: [id number] Reading Location: [id number] Procedure Note Jaxson Segura MD - 08/29/2024 EXAM DESCRIPTION: XR KNEE RIGHT 1 OR 2 VIEWS REASON FOR STUDY: in pacu s/p right tka Right knee osteoarthritis FINDINGS: Two views submitted with comparison 04/24/2024. Right total knee arthroplasty is in near anatomic alignment. No acute fracture. Soft tissue swelling is present. IMPRESSION: Interval right total knee arthroplasty in near anatomic alignment. THIS IS AN ELECTRONICALLY VERIFIED FINAL REPORT 08/29/2024 3:11 PM - Electronically signed by Jaxson Segura M.D. MF: [id number] Report ID: [id number] Reading Location: [id number] us Iliana FUNG IMG XR PROCEDURES Fin al Result * Spinal Block (08/29/2024 9:58 AM CDT) Alphonso Ring CRNA - 08/29/2024 9:58 AM CDT Alphonso Waldrop CRNA 08/29/2024 9:58 AM Spinal Block Patient location: OR End time: 08/29/2024 9:48 AM Reason for block: primary anesthetic Staff: Supervising provider: Hamida Mak MD Placed by: PROFESSOR OF ART:Alphonso Waldrop CRNA Procedure prep: Preprocedure checklist: patient identified, procedure contraindications assessed, site marked, procedure consent, surgical consent, IV checked, risks, benefits and alternatives discussed, monitors and equipment checked and timeout performed Patient position: sitting Procedure performed while patient: sedate with meaningful contact Monitoring: oximetry and blood pressure Prep solution: chlorhexadine/alcohol PPE: provider hat/mask, sterile gloves and sterile drape Skin infiltrated with lidocaine 1%: yes Spinal: Approach: midline Introducer used: yes Location: L3-4 Spinal injection: CSF demonstrated, no aspiration of heme and no paresthesias noted Number of attempts: 1 Spinal Needle: Needle type: Eva Needle gauge: 25 G Needle length: 5 cm Assessment: Sensory deficit - left: full eval pending Sensory deficit - right: full eval pending Events: patient tolerated procedure well with no complications Additional comments: Placed by SHAD Bailey us Hamida Mak MD ANESTHESIA ORDERABLES Fi nal Result * aPTT (08/29/2024 7:47 AM CDT) aPTT 36 28 - 38 sec [facility] Comment: Interpretive Data Heparin therapeutic range: 66.0 - 100.0 seconds. Range based on correlation with therapeutic heparin activity range of 0.3 - 0.7 Units/mL. Current interpretive data was last revised on 2023. Blood 08/29/2024 7:47 AM CDT 08/29/2024 8:03 AM CDT us Luis Carlos oLpez MD LAB BLOOD ORDERABLES Fin al Result [facility] ([facility] 1 [facility] Department [place] [address] * Protime-INR (08/29/2024 7:47 AM CDT) PT 11.4 9.7 - 13.0 sec [facility]) INR 1.05 0.90 - 1.20 [facility] ([place]) Comment: Interpretive data Oral anticoagulant therapeutic ranges: Venous thromboembolism prophylaxis or treatment: 2.0-3.0 CARDIOLOGY Standard range: 2.0-3.0 High-intensity range: 2.5-3.5 Refer to indication-specific guidelines for appropriate target ranges for prosthetic heart valve replacement. Current interpretive data was last revised on 2019. Blood 08/29/2024 7:47 AM CDT 08/29/2024 8:03 AM CDT Luis Carlos Lopez MD LAB BLOOD ORDERABLES Fin al Result Performing Organization Address City/[facility] Co de Phone Number [facility] [address] [facility] Department [place] [address] * Hepatitis C antibody Blood (06/14/2023 2:42 PM GLASSWARE DEFECT REPAIRER) Hep C Ab NON-REACTI VE NON-REACT [facility] Comment: HCV antibody was non-reactive. There is no laboratory evidence of HCV infection. In most cases, no further action is required. However, if recent HCV exposure is suspected, a test for HCV RNA (test code 40239) is suggested. For additional information please refer to http://[email or web address].GrownOut/faq/BTC67m8 (This link is being provided for informational/ educational purposes only.) Blood 06/14/2023 2:42 PM GLASSWARE DEFECT REPAIRER 06/14/2023 2:42 PM GLASSWARE DEFECT REPAIRER Jaxson FUNG LAB MICROBIOLOGY - GENE RAL ORDERABLES Final Result [facility] [address] [place] [address] * DIGITAL MAMMOGRAPHY (03/15/2014 12:37 PM CDT) Anatomical Region Laterality Modality Breast Mammography 03/15/2014 12:3 7 PM CDT Narrative 03/15/2014 10:48 PM CDT Mammogram Performed by: CD Screening Mamm Bi Acc#: [id number] DATE OF EXAM: Mar 15 2014 CLINICAL HISTORY: Baseline screening. RESULT: Superior-inferior and lateral oblique views were obtained. The left breast is slightly larger than the right. There is a mild amount of fibroglandular tissue. No neoplasm is identified, and no pathological calcification or skin thickening is seen. Digital technology was employed plus computer-aided detection software (R2) was utilized in interpretation of these images. IMPRESSION: 1. MILD FIBROGLANDULAR TISSUE WITH NO NEOPLASM IDENTIFIED. 2. SUGGEST FOLLOWUP MAMMOGRAM IN ONE YEAR TO FURTHER ESTABLISH STABILITY. BI- RADS CATEGORY 2 - BENIGN FINDINGS. Interpreting Physician: LAWRENCE FALL M.D. Read on: Mar 15 2014 12:37P Transcribed by: malena On: Mar 15 2014 2:13P Approved Electronically by: LAWRENCE FALL M.D. on: Mar 15 2014 10:48P Ordering DR: VIMAL LLOYD Attending : VIMAL LLOYD Procedure Note Provider, MD Ivis - 09/10/2016 Mammogram Performed by: Screening Mamm Bi Acc#: [id number] DATE OF EXAM: Mar 15 2014 CLINICAL HISTORY: Baseline screening. RESULT: Superior-inferior and lateral oblique views were obtained. The leftbreast is slightly larger than the right. There is a mild amount offibroglandular tissue. No neoplasm is identified, and no pathologicalcalcification or skin thickening is seen. Digital technology was employedplus computer-aided detection software (R2) was utilized in interpretationof these images. IMPRESSION: 1. MILD FIBROGLANDULAR TISSUE WITH NO NEOPLASM IDENTIFIED. 2. SUGGEST FOLLOWUP MAMMOGRAM IN ONE YEAR TO FURTHER ESTABLISH STABILITY.BI-RADS CATEGORY 2 - BENIGN FINDINGS. Interpreting Physician: LAWRENCE FALL M.D. Read on: Mar 15 201412:37P Transcribed by: malena On: Mar 15 2014 2:13P Approved Electronically by: LAWRENCE FALL M.D. on: Mar 15 201410:48P Ordering DR: VIMAL LLOYD Attending SARA LLOYD us Historical Provider MD GODWIN MAMMO PROCEDURES Tara l Result from Last 3 Months or Most Recently Relevant to Health Maintenance Insurance [employer] [place] [employer] [place] [employer] [facility] [employer] [place] Advance Directives For more information, please contact: [phone] * Full Code (Latest Code Status on File) Date Activated Date Inactivated Comments 08/29/2024 1:04 PM 08/30/2024 2:48 PM Care Teams Machine Tool Dresser Relationship Specialty Start Date End Date Priscilla Plummer NP [address] [place] [address] PCP - General 09/27/21 Jake Frazier MD [address] [place] [address] Consulting Physician Rheumatology 05/20/23 Jose Martin Kunz DPM [address] [place] [address] Consulting Physician Orthotics 04/17/24 Elio Ghotra, OT Occupational Therapist Occupational Therapy 08/22/24 Luis Carlos Lopez MD [address] [place] [address] [place] [address] Surgeon Orthopedic Surgery 08/30/24
--- OUTSIDE RECORDS SUMMARY | 2024-11-26 13:33 | XMS_ITS | Encounter Summary ---
Author Organization [facility] Address [address] [place] [address] Phone Care Team Providers Care Power Grader Operator Name Role Phone Priscilla Plummer APRN, HAT CLEANER Primary Care P rovider Luther Garcia MD Unavailable Mere Martinez APRN, HAT CLEANER Unavailable [phone] Jose Montemayor MD Unavailable [phone] Reason for Referral * Medical Care (Routine) - Closed Specialty Diagnoses / Procedures Referred By Contac t Referred To Contact Diagnoses Osteopenia, unspecified location Procedures OFFICE/OP NEW LVL 3 LOW MDM/30-44 MIN OFFICE/OP EST LVL 3 LOW MDM/20-29 MIN Priscilla Plummer APRN, HAT CLEANER [address] [place] [address] Phone: tel: fax: [facility] ENDOCRINOLOGY DIABETES AND METABOLISM [address] [place] [address] Phone: tel: fax: Referral ID Status Reason Start Date Expiration Date Visits Re quested Visits Authorized [id number] Closed 02/07/2023 1 11 Scheduling Instructions Karen is being referred to Dr. Dandy Tapia at [facility] for osteopenia. See below for Karen's current medications, allergies and problem list. CURRENT MEDS: Current Outpatient Medications: acetaminophen (TYLENOL) 325 MG Tablet, Take 1 Tablet by mouth every 6 hours as needed for Fever (for temperature greater than 100.4 F.). Do not exceed 4000 mg of acetaminophen in 24 hour from all sources., Disp: , Rfl: ALPRAZolam (XANAX) 0.25 MG Tablet, Take 1 Tablet by mouth daily as needed for Anxiety., Disp: 30 Tablet, Rfl: 0 Cholecalciferol (VITAMIN D-3 PO), Take by mouth., Disp: , Rfl: lactulose (CHRONULAC) 10 GM/15ML Solution, Take 45 mL by mouth every 12 hours as needed for Constipation - 1st line (For constipation x>3 days.) for up to 21 doses., Disp: 946 mL, Rfl: 0 meloxicam (MOBIC) 15 MG Tablet, TAKE 1 TABLET DAILY, Disp: 90 Tablet, Rfl: 2 Multiple Vitamin (MULTI-VITAMIN PO), Take by mouth daily., Disp: , Rfl: [place]-3 Fatty Acids (OMEGA 3 PO), Take by mouth daily., Disp: , Rfl: omeprazole (PriLOSEC) 20 MG CAPSULE DELAYED RELEASE, Take 1 Capsule by mouth daily., Disp: 90 Capsule, Rfl: 1 Rizatriptan Benzoate 10 MG Tablet, TAKE 1 TABLET ONCE NEEDED FOR HEADACHES FOR UP TO 1 DOSE, MAY REPEAT IN 2 HOURS IF NEEDED, Disp: 10 Tablet, Rfl: 1 No current facility-administered medications for this visit. ALLERGIES: No Known Allergies PROBLEM LIST: Patient Active Problem List: Arthritis Depression GERD (gastroesophageal reflux disease) Migraine without aura Arthralgia of multiple joints LOYDA (generalized anxiety disorder) Nasal polyp Abdominal pain Excessive daytime sleepiness Class 1 obesity due to excess calories without serious comorbidity with body mass index (BMI) of 33.0 to 33.9 in adult Suspected sleep apnea Witnessed episode of apnea Reason for Visit * Reason Onset Date Comments Referral 02/07/2023 New referral nee ded. Encounter Details Date Type Department Care Team (Late st Contact Info) Description 02/07/2023 Telephone [facility] [address] [place] [address] Priscilla Plummer, CAREER DEVELOPMENT FACILITATOR, HAT CLEANER [address] [place] [address] Referral (New referral needed.) Social History Tobacco Use Types Packs/Day Years Used Date Smoking Tobacco: Never Smokeless Tobacco: Never Alcohol Use Standard Drinks/Week Comments Not Currently 0 (1 standard drink = 0.6 oz pur e alcohol) RARELY PHQ-2 Answer Date Recorded Total Score - Questions 1-9 10 09/15 Education Answer Date Recorded What is the highest level of school you have completed or the highest degree you have received? Some college, no degree 10/07/2020 Sexually Active Control Partners Comments Yes Male Comments No Sex and Gender Information Value Date Recorded Sex Assigned at Not on file Legal Sex Female 11:23 AM CDT Gender Identity Not on file Sexual Orientation Not on file COVID-19 Exposure Response Date Recorded In the last 10 days, have yo u been in contact with someone who was confirmed or suspected to have Coronavirus/COVID-19? No / Unsure 02/08/2023 10:37 AM CDT documented as of this encounter Miscellaneous Notes * Telephone Encounter - Jana Arevalo RN - 02/07/2023 1:40 PM CDT New Endo referral placed. * Telephone Encounter - Angely Shannon - 02/07/2023 10:35 AM CDT SITUATION: [facility] Referrals is requesting provider review for External Orthopedic Referral. BACKGROUND: Referral unable to be processed. ASSESSMENT: Request for provider review due to the following reason(s): Need new referral. RECOMMENDATION: Based on the above information the provider has the following option(s): We spoke to patient about referral. She would like referral sent to Dr. Dandy Tapia at [facility]. He is an manager strategy that treats Osteopenia. I spoke to his office, and they want a referral for Endocrinology rather thanOrthopedics. Please enter a referral to Endocrinology so we can get patient referred to provider ofher choice. Thank you documented in this encounter Plan of Treatment Upcoming Encounters Date Type Department Care Team (Late st Contact Info) Description 01/31/2025 10:00 AM CDT Hospital Encounter [facility] Periop [address] [place] [address] Luther Garcia MD #[address] [address] 01/31/2025 10:00 AM CDT - 01/31/2025 10:30 AM CDT Surgery [facility] Periop [address] [place] [address] Luther Garcia MD #[address] [address] COLONOSCOPY Scheduled Procedures Name Priority Associated Diagnoses Date/Ti me COLONOSCOPY SCREENING FOR COLON CANCER 01/31/2025 10:00 AM CDT Scheduled Referrals Name Type Priority Associated Diagnoses Order Schedule EXTERNAL ENDOCRINOLOGY REFERRAL Outpatient Referral Routine Osteopenia, unspecified location Expected: 02/07/2023, Expires: 02/08/2024 documented as of this encounter Visit Diagnoses Diagnosis Nasal polyp- Primary Unspecified nasal polyp Osteopenia, unspecified location documented in this encounter Additional Health Concerns Assessment Noted Time PHQ-9 Depression Total Score: 10 023 10:00 AM CDT documented as of this encounter Care Teams Power Grader Operator Relationship Specialty Start Date End Date Priscilla Plummer APRN, HAT CLEANER [address] [place] [address] PCP - General Advanced Practice Nurse 10/25/18 Luther Garcia MD #[address] [place] [address] Consulting Physician Colon and Rectal Surgery 01/07/21 Mere Martinez APRN, HAT CLEANER #2 [facility] [address] [place] [address] Nurse Practitioner Advanced Practice Nurse 07/12/22 Jose Montemayor MD #[address] [place] [address] Consulting Physician Neurology 02/02/22 documented as of this encounter
--- OUTSIDE RECORDS SUMMARY | 2024-11-26 13:34 | XMS_ITS | Encounter Summary ---
Author Organization [facility] Address [address] [place] [address] Phone Care Team Providers Care Associate Professor Of History Name Role Phone Priscilla Plummer APRN, CATHERINE Primary Care P rovider Luther Garcia MD Unavailable Mere Martinez APRN, NURSE MONITORING Unavailable Jose Montemayor MD Unavailable [phone] Reason for Visit * Reason Comments Medication Refill Encounter Details Date Type Department Care Team (Late st Contact Info) Description 01/16/2022 Refill [facility] - Primary Care - Maria Del Carmen [address] [place] [address] Priscilla Plummer APRN, NURSE MONITORING [address] [place] [address] Medication Refill Social History Tobacco Use Types Packs/Day Years Used Date Smoking Tobacco: Never Smokeless Tobacco: Never Alcohol Use Standard Drinks/Week Comments Not Currently 0 (1 standard drink = 0.6 oz pur e alcohol) RARELY PHQ-2 Answer Date Recorded Total Score - Questions 1-9 0 06/16 Education Answer Date Recorded What is the [...] suspected to have Coronavirus/COVID-19? No / Unsure 01/04/2022 9:30 AM CDT documented as of this encounter Miscellaneous Notes * Telephone Encounter - Aide Morris RN - 01/19/2022 8:47 AM CDT Refill request too soon. documented in this encounter Plan of Treatment Upcoming Encounters Date Type Department Care Team (Late st Contact Info) Description 01/31/2025 10:00 AM CDT [facility] [address] [place] [address] Luther Garcia MD #[address] [address] 01/31/2025 10:00 AM CDT - 01/31/2025 10:30 AM CDT [facility] [address] [place] [address] Luther Garcia MD #[address] [address] COLONOSCOPY Scheduled Procedures Name Priority Associated Diagnoses Date/Ti me COLONOSCOPY SCREENING FOR COLON CANCER 01/31/2025 10:00 AM CDT documented as of this encounter Visit Diagnoses Not on filedocumented in this encounter Additional Health Concerns Assessment Noted Time PHQ-9 Depression Total Score: 0 07/04/19 21 1:00 PM EXCEPTIONAL STUDENT EDUCATION AIDE documented as of this encounter Care Teams Associate Professor Of History Relationship Specialty Start Date End Date Priscilla Plummer APRN, NURSE MONITORING [address] [place] [address] PCP - General Advanced Practice Nurse 10/25/18 Luther Garcia MD #[address] [address] Consulting Physician Colon and Rectal Surgery 01/07/21 Mere Martinez APRN, NURSE MONITORING #2 [facility] [address] [place] [address] Nurse Practitioner Advanced Practice Nurse 07/12/22 Jose Montemayor MD #[address] [place] [address] Consulting Physician Neurology 02/02/22 documented as of this encounter
--- OUTSIDE RECORDS SUMMARY | 2024-11-26 13:34 | XMS_ITS | Encounter Summary ---
Author Organization [facility] Address [address] [place] [address] Phone Care Team Providers Care Shag Truck Driver Name Role Phone Priscilla Plummer APRN, CATHERINE Primary Care P rovider Luther Garcia MD Unavailable Mere Martinez APRN, CNP Unavailable [phone] Jose Montemayor MD Unavailable [phone] Encounter Details Date Type Department Care Team (Late st Contact Info) Description 04/03/2021 Telephone [facility] Outpatient [address] [place] [address] Jodie Mera [place] Social History Tobacco Use Types Packs/Day Years [...] Exposure Response Date Recorded In the last month, have you been in contact with someone who was confirmed or suspected to have Coronavirus / COVID-19? No / Unsure 03/18/2021 2:41 PM CDT documented as of this encounter Plan of Treatment Upcoming Encounters Date Type Department Care Team (Late st Contact Info) Description 01/31/2025 10:00 AM CDT [facility] [address] [place] [address] Luther Garcia MD #[address] [address] 01/31/2025 10:00 AM CDT - 01/31/2025 10:30 AM CDT [facility] [address] [place] [address] Luther Garcia MD #[address] [address] COLONOSCOPY Scheduled Procedures Name Priority Associated Diagnoses Date/Ti me COLONOSCOPY SCREENING FOR COLON CANCER 01/31/2025 10:00 AM CDT documented as of this encounter Visit Diagnoses Not on filedocumented in this encounter Additional Health Concerns Assessment Noted Time PHQ-9 Depression Total Score: 0 07/04/19 21 1:00 PM ASSISTANT PROFESSOR OF SURGERY documented as of this encounter Care Teams Shag Truck Driver Relationship Specialty Start Date End Date Priscilla Plummer APRN, PRODUCTION MANUFACTURING WORKER [address] [place] [address] PCP - General Advanced Practice Nurse 10/25/18 Luther Garcia MD #[address] [address] Consulting Physician Colon and Rectal Surgery 01/07/21 Mere Martinez APRN, CATHERINE #[address] [address] Nurse Practitioner Advanced Practice Nurse 07/12/22 Jose Montemayor MD #[address] [place] [address] Consulting Physician Neurology 02/02/22 documented as of this encounter
--- OUTSIDE RECORDS SUMMARY | 2024-11-26 13:34 | XMS_ITS | Encounter Summary ---
Author Organization [facility] Address [address] [place] [address] Phone Care Team Providers Care Teleprinter Name Role Phone Priscilla Plummer APRN, CHARTER BOAT OPERATOR Primary Care P rovider Luther Garcia MD Unavailable Mere Martinez APRN, CNP Unavailable Jose Montemayor MD Unavailable [phone] Reason for Visit * Reason Onset Date Comments Medication Refill Medication Refill 10/06/2020 Encounter Details Date Type Department Care Team (Late st Contact Info) Description 10/04/2020 Refill [facility] - Primary Care - Maria Del Carmen [address] [place] [address] Priscilla Plummer APRN, CHARTER BOAT OPERATOR [address] [place] [address] Medication Refill; Medication Refill Social History Tobacco Use Types Packs/Day Years Used Date Smoking Tobacco: Never Smokeless Tobacco: Never Alcohol Use Standard Drinks/Week Comments Yes 0 (1 standard drink = 0.6 oz pur e alcohol) occasional PHQ-2 Answer Date Recorded Total Score - Questions 1-9 0 02/1 01/2021 Sexually Active Control Partners Comments Yes Male [...] have Coronavirus / COVID-19? No / Unsure 10/07/2020 8:57 AM CDT documented as of this encounter Plan of Treatment Upcoming Encounters Date Type Department Care Team (Late st Contact Info) Description 01/31/2025 10:00 AM CDT [facility] [address] [place] [address] Luther Garcia MD #[address] [address] 01/31/2025 10:00 AM CDT - 01/31/2025 10:30 AM CDT [facility] [address] [place] [address] Luther Garcia MD #[address] [address] COLONOSCOPY Scheduled Procedures Name Priority Associated Diagnoses Date/Ti me COLONOSCOPY SCREENING FOR COLON CANCER 01/31/2025 10:00 AM CDT documented as of this encounter Visit Diagnoses Diagnosis Irritable bowel syndrome with constipation Irritable bowel syndrome documented in this encounter Additional Health Concerns Assessment Noted Time PHQ-9 Depression Total Score: 0 07/04/19 21 1:00 PM RECORDS SUPERVISOR documented as of this encounter Care Teams Teleprinter Relationship Specialty Start Date End Date Priscilla Plummer APRN, CHARTER BOAT OPERATOR [address] [place] [address] PCP - General Advanced Practice Nurse 10/25/18 Luther Garcia MD #2 [facility] [address] [place] [address] Consulting Physician Colon and Rectal Surgery 01/07/21 Mere Martinez APRN, CHARTER BOAT OPERATOR #2 [facility] [address] [place] [address] Nurse Practitioner Advanced Practice Nurse 07/12/22 Jose Montemayor MD #2 [place] [address] Consulting Physician Neurology 02/02/22 documented as of this encounter
--- OUTSIDE RECORDS SUMMARY | 2024-11-26 13:34 | XMS_ITS | Encounter Summary ---
Author Organization [facility] [place] [facility] Address [address] [place] [address] Phone Care Team Providers Care Montessori Lead Teacher Name Role Phone Priscilla Plummer NP Primary Care Provide r Jake Frazier MD Unavailable [phone] Jose [place] Kunz DPM Unavailable Elio Ghotra OT Unavailable Unavailable Luis Carlos Lopez MD Unavailable [phone] Encounter Details Date Type Department Care Team (Late st Contact Info) Description 11/20/2024 Telephone [facility] Surgery [address] [facility] [address] [place] [address] Annmarie Ding RN Social History Tobacco Use Types Packs/Day Years Used Date Smoking Tobacco: Never Smokeless Tobacco: Never Alcohol Use Standard Drinks/Week Comments No 0 [...] on file Legal Sex Female 12:52 AM PERSONNEL SUPERVISOR Gender Identity Not on file Sexual Orientation Not on file 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 Wagner. Pt states this AM she was putting onher shoe and heard her wrist pop and is now having a difficult time using her hand. Pt request CB CB# [phone] documented in this encounter Plan of Treatment Upcoming Encounters Date Type Department Care Team (Latest Contact Info) Description 01/10/2025 7:30 AM CDT Hospital Encounter [facility] [place] [address] Najma Wagner MD PhD [address] [place] [address] 01/10/2025 7:30 AM CDT - 01/10/2025 10:20 AM CDT Surgery [facility] [place] [address] Najma Wagner MD PhD [address] [place] [address] TRAPEZIECTOMY - INTERNAL BRACE - LEFT thumb trapeziectomy with tendon suspensionplasty and Arthrex internal brace augmentation Scheduled Procedures Name Priority Associated Diagnoses Date/Ti me TRAPEZIECTOMY - INTERNAL BRACE Arthritis of carpometacarpal (CMC) joint of left thumb 01/10/2025 7:30 AM CDT documented as of this encounter Visit Diagnoses Not on filedocumented in this encounter Care Teams Montessori Lead Teacher Relationship Specialty Start Date End Date Priscilla Plummer NP [address] [place] [address] PCP - General 09/27/21 Jake Frazier MD [address] [place] [address] Consulting Physician Rheumatology 05/20/23 Jose [place] Kunz DPM [address] [place] [address] Consulting Physician Orthotics 04/17/24 Elio Ghotra OT Occupational Therapist Occupational Therapy 08/22/24 Luis Carlos Lopez MD [address] [place] [address] [place] [address] Surgeon Orthopedic Surgery 08/30/24 documented as of this encounter
--- OUTSIDE RECORDS SUMMARY | 2024-11-26 13:34 | XMS_ITS | Clinical Summary ---
Author Organization [facility] Care Team Providers Care Instructor Dancing Name Role Phone Priscilla Plummer APRN, TRUCK ENGINE ASSEMBLER Primary Care P rovider Luther Garcia MD Unavailable Mere Martinez APRN, TRUCK ENGINE ASSEMBLER Unavailable Jose Montemayor MD Unavailable [phone] Allergies Active Allergy Reactions Criticality Noted Date Comments Ciprofloxacin-Dexame thasone Other (see Comments) 11/20/2024 Advised not to due to EDS Medications acetaminophen (TYLENOL) 325 MG Tablet Take 1 Tablet by mouth every 6 hours as needed for Fever (for temperature greater than 100.4 F.). Do not exceed 4000 mg of acetaminophen in 24 hour from all sources. 1 Active Additional Information Patient not taking.Reason: Other, Reported on 11/21/2024 Multiple Vitamin (MULTI-VITAMIN PO) Take by mouth daily. Active Cholecalciferol (VITAMIN D-3 PO) Take by mouth. Activ e Rizatriptan Benzoate 10 MG TabletIndicatio ns:Migraine without aura and with status migrainosus, not intractable TAKE 1 TABLET ONCE NEEDED FOR HEADACHES FOR UP TO 1 DOSE, MAY REPEAT IN 2 HOURS IF NEEDED 10 Tablet 1 3 Active Additional Information Patient not taking.Reason: Other, Reported on 11/21/2024 Naltrexone HCl, Pain, 4.5 MG CapsuleIndicati ons:Chronic pain syndrome Take 4.5 mg by mouth daily. 90 Capsule 4 Active omeprazole (PriLOSEC) 20 MG CAPSULE DELAYED RELEASE TAKE 1 CAPSULE DAILY 90 Capsule 1 4 Active Trulance 3 MG Tablet TAKE 1 TABLET DAILY 90 Tablet 1 4 Active Additional Information Patient not taking.Reason: Other, Reported on 11/21/2024 meloxicam (MOBIC) 15 MG Tablet TAKE 1 TABLET DAILY 90 Tablet 1 4 Active Additional Information Patient not taking.Reason: Other, Reported on 11/21/2024 ALPRAZolam (XANAX) 0.25 MG TabletIndicatio ns:LOYDA (generalized anxiety disorder) Take 1 Tablet by mouth daily as needed for Anxiety. 30 Tablet 4 Active traMADol (ULTRAM) 50 MG TabletIndicatio ns:Polyarthralg ia Pain in unspecified joint Take 1 Tablet by mouth every 6 hours as needed for Severe pain. 30 Tablet 4 Active Additional Information Patient not taking.Reason: Other, Reported on 11/21/2024 semaglutide, 1 MG/DOSE, (OZEMPIC) 4 MG/3ML Solution Pen-injectorInd ications:Class 2 severe obesity due to excess calories with serious comorbidity and body mass index (BMI) of 36.0 to 36.9 in adult (HCC),Overweigh t with body mass index (BMI) of 26 to 26.9 in adult 1 mg by Subcutaneous route once a week. 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 Vitamin D deficiency 11/09/2022 Overview (02/08/2023): Last Assessment & Plan: Patient has been on Vitamin D 3 - continue OTC vitamin D3- 2000 international units/day Excessive daytime sleepiness 07/12/2022 Class 1 obesity due to exces s calories without serious comorbidity with body mass index (BMI) of 33.0 to 33.9 in adult 07/12/2022 Suspected sleep apnea 07/12/2022 Witnessed episode of apnea 07/12/2022 Osteoporosis 04/07/2021 Overview (06/17/2023): Last Assessment & Plan: Osteopenia of the hip detected in 2021 [...] be referred to bone health specialist @ [facility] or [facility] if bone density still stable . Patient understands and agrees with above plan. Last Assessment & Plan: Most recent DEXA scan displayed osteopenia. With that said, given numerous fragility fractures, this appears most consistent with osteoporosis. Given her osteoporosis and fragility fracture history, would recommend treatment with Evenity, Forteo, or Tymlos. Will check vitamin-D level and few additional labs today. Is scheduled to see bone health in January. Abdominal pain 03/04/2021 Polyarthralgia Pain in unspecified joint 019 Overview (10/17/2023): Labs 06/14/2023: CBC: MPV 12.6, but otherwise WNL; CMP: Glucose 101, but otherwise WNL; CRP/ESR WNL; hepatitis-B/C WNL; vitamin-D 28, but otherwise WNL; PTH WNL, ionized calcium 5.1 WNL, Avise 06/16/2023: Positive HEVER by Matilde only, positive thyroglobulin IgG US right hand/wrist (06/23/23): Marked spurring in [...] MTP OA and left 2nd-5th stress fractures Last Assessment & Plan: Karen is a pleasant 58-year-old female presented for [...] needed or if any new symptoms arise. LOYDA (generalized anxiety disorder) 10/25/2018 Nasal polyp 10/25/2018 GERD (gastroesophageal reflux disease) 0 Depression 12/29/2008 Arthritis 10/18/2008 Overview (10/25/2018): Wrists, elbows, and knees Migraine without aura 10/18/2008 Resolved Problems Problem Noted Date Diagnosed Date Resolved Date Chest pain 10/31/2022 11/01/2022 Hypothyroidism, adult 07/24/20142022 Overview (07/04/2020): Begin supplement 07/2014. Some tingling of the fingers Deviated nasal septum 02/10/20122018 Encounters Date Type Department Care Team Description 11/21/2024 10:00 AM CDT Office Visit [facility] - General Surgery - [place] [address] [phone] Priscilla Plummer APRN, Luther Caro MD Special screening for malignant neoplasms, colon (Primary Dx) Discharge Disposition: Discharged to home or Selfcare 11/21/2024 Travel 11/20/2024 11:18 AM CDT - 11/20/2024 11:59 PM CDT Hospital Encounter [facility] [address] [place] [address] Mendez Royal, PAC Discharge Disposition: Discharged to home or Selfcare 11/20/2024 10:25 AM CDT Urgent Care Visit [facility] [address] [place] [phone] Mendez Royal, PAC Right wrist sprain, initial encounter (Primary Dx) Discharge Disposition: Discharged to home or Selfcare 11/20/2024 Results Follow-Up [facility] [address] [place] [address] Mendez Royal, PAC XR WRIST 3 OR MORE VIEWS RIGHT 11/20/2024 Travel 11/20/2024 Nurse Triage [facility] [address] [place] [phone] Priscilla Plummer APRN, CATHERINE Hand Pain 11/02/2024 Telephone [facility] [address] [place] [phone] Priscilla Plummer APRN, TRUCK ENGINE ASSEMBLER Prior Authorization (semaglutide, 1 MG/DOSE, (OZEMPIC) 4 MG/3ML Solution Pen-injector) from Last 3 Months Immunizations Immunization Administration Dates Next Due COVID-19, MRNA, LNP-S, BIVAL ENT , PFIZER, 30 MCG/0.3 ML (12+ Y/O) 04/10/2022 Covid-19 Vaccine, Vector-nr, Rs-ad26, Pf, 0.5 Ml (BLANCA/J&J) 07/18/2020 Covid-19, Mrna, Lnp-s, PF, 1 00 mcg/0.5 mL Dose (Moderna) 06/28/2020 Covid-19, Mrna, Lnp-s, Pf, 3 0 Mcg/0.3 Ml Dose, Dwight-sucrose (Pfizer castano top) 11/29/2021 Influenza Vaccine, MDCK,quad rivalent, pres free 03/02/2023 Influenza Vaccine, Quadrivalent, PF 03/17,01/22/2021,03/05/2020,2014 Influenza,Split Virus,Trivalent,Injectable,PF 01/24/2024 TDAP Vaccine 10/21/2017,12/16/2015 Zoster Vaccine Recombinant 02/20/2021,12/02/2020 Family History Medical History Relation Name Comments ehler karunas Daughter Cancer Father Stomach Cancer Father Rheumatoid Arthritis Maternal Grandfather No Known Problems Maternal Grandmother Diabetes Mother Kidney Disease Mother Heart Attack Paternal Grandfather Heart Attack Paternal Grandmother Other-comment Son Relation Name Status Comments Daughter Alive Gurpreet-Danlos s yndrome Father Maternal Grandfather Maternal Grandmother Mother Paternal Grandfather Paternal Grandmother Son Alive Transgender; on female hormonesEhlers-Danlos syndrome Social History Tobacco Use Types Packs/Day Years Used Date Smoking Tobacco: Never Smokeless Tobacco: Never Tobacco Cessation:Counseling Given: Not Answered Alcohol Use Standard Drinks/Week Comments Not Currently 0 (1 standard drink = 0.6 oz pur e alcohol) RARELY [employer] Utilities Answer Date Recorded In the past 12 months has [employer], oil, or water [email or web address] threatened to shut off services in your home? No 08/12/2024 Social Connection and Isolation Panel Answer Date Recorded In a typical week, how many times do you talk on the phone with family, friends, or neighbors? More than three times a week 08/12/2024 How often do you get togethe r with friends or relatives? More than three times a week 08/12/2024 How often do you attend [facility] or rastafarian services? 1 to 4 times per year 08/12/2024 Do you belong to any clubs o r organizations such as episcopalian groups, unions, fraternal or athletic groups, or school groups? Yes 08/12/2024 How often do you attend meet ings of the clubs or organizations you belong to? More than 4 times per year 08/12/2024 Are you , , di vorced, , never , or living with a partner? 08/12/2024 Overall Financial Resource Strain (CARDIA) Answe r Date Recorded How hard is it for you to pa y for the very basics like food, housing, medical care, and heating? Patient declined 08/12/2024 PHQ-2 Answer Date Recorded Total Score - Questions 1-9 10 09/15 [facility] - Occupational Stress Questionnaire Answer Date Recorded Do you feel stress - tense, restless, nervous, or anxious, or unable to sleep at night because your mind is troubled all the time - these days? To some extent 08/12/2024 Exercise Vital Sign Answer Date Recorde d On average, how many days pe r week do you engage in moderate to strenuous exercise (like a brisk walk)? 6 days 08/12/2024 On average, how many minutes do you engage in exercise at this level? 90 min 08/12/2024 Hunger Vital Sign Answer Date Recorded Within the past 12 months, y ou worried that your food would run out before you got the money to buy more. Never true 08/13/19 25 Within the past 12 months, t he food you bought just didn't last and you didn't have money to get more. Never true 08/12/2024 PRAPARE - Transportation Answer Date Re corded In the past 12 months, has l ack of transportation kept you from medical appointments or from getting medications? No 07/16 In the past 12 months, has l ack of transportation kept you from meetings, work, or from getting things needed for daily living? No 08/12/2024 Housing Stability Vital Sign Answer Giovanni e Recorded In the last 12 months, was t here a time when you were not able to pay the mortgage or rent on time? Patient declined 06/15/19 24 Number of Places Lived in the Last Year Not on f ile 06/15/2023 In the last 12 months, was t here a time when you did not have a steady place to sleep or slept in a [place] (including now)? Patient declined 06/15/2023 Housing Stability Vital Sign Answer Giovanni e Recorded In the last 12 months, was t here a time when you were not able to pay the mortgage or rent on time? No 08/12/2024 Number of Times Moved in the Last Year Not on fi le 08/12/2024 At any time in the past 12 m [facility], were you homeless or living in a [place] facility (including now)? No 08/12/2024 AUDIT-C Answer Date Recorded Q1: How often do you have a drink containing alcohol? Never 11/21/2024 Q2: How many drinks containi ng alcohol do you have on a typical day when you are drinking? Patient does not drink Q3: How often do you have si x or more drinks on one occasion? Never 11/21/2024 Education Answer Date Recorded What is the [...] on file Sexual Orientation Not on file Last Filed Vital Signs Vital Sign Reading Time Taken Comments Blood Pressure 116/70 11/21/2024 9:38 AM CDT Pulse 77 11/21/2024 9:38 AM CDT Temperature 36.1 C (97 F) 11/21/2024 9:38 AM CDT Respiratory Rate 14 11/20/2024 10:30 AM CDT Oxygen Saturation 98% 11/21/2024 9:38 AM CDT Inhaled Oxygen Concentration - - Weight 99.3 kg (219 lb) 11/21/2024 9:38 AM CDT Height 172.7 cm (5' 8) 11/21/2024 9:38 AM CDT Body Mass Index 33.3 11/21/2024 9:38 AM CDT Plan of Treatment Upcoming Encounters Date Type Department Care Team (Late st Contact Info) Description 01/31/2025 10:00 AM CDT Hospital Encounter [facility] Periop [address] [place] [phone] Luther Garcia MD #[address] [address] 01/31/2025 10:00 AM CDT - 01/31/2025 10:30 AM CDT [facility] [address] [place] [phone] Luther Garcia MD #[address] [address] COLONOSCOPY Scheduled Procedures Name Priority Associated Diagnoses Date/Ti me COLONOSCOPY SCREENING FOR COLON CANCER 01/31/2025 10:00 AM CDT Health Maintenance Due Date Last Done Comments Cologuard 2009 Immunochemical Fecal Occult Blood 2009 Pneumococcal Immunization (50+ years) (1 of 1 - PCV) 2014 SARS-COV-2 Immunization ( season) 2024 03/02/2023, 04/10/2022, 11/29/2021, Additional history exists Colonoscopy 07/09/2024 07/09/2014 Colorectal Cancer Screening 07/09/2024 Influenza Immunization (#1) 01/14/202501/14, 03/02/2023, 04/10/2022, Additional history exists Mammogram 06/20/2025 06/20/2024, 07/14, 08/18/2020, Additional history exists Td Immunization Every 10 Years (Adults With 1 Tdap) 10/22/2027 10/21/2017, 12/16/2015 Respiratory Syncytial Virus (RSV) Immunization (Adult) (1 - 1-dose 75+ series) 2039 Zoster Immunization Completed 02/20/2021, Hepatitis B Immunization Discontinued Hepatitis C Virus (HCV) Screening Discontinued Human Papillomavirus (HPV) Immunization Aged Out No longer eligible based on patient's age to complete this topic Meningococcal Immunization (ACWY) Aged Out No longer eligible based on patient's age to complete this topic Rotavirus Immunization Aged Out No lo nger eligible based on patient's age to complete this topic Medical Devices Implanted Type Area Chuck Wagon Cook Device Identifier Shelf Expiration Date Model / Serial / Lot Impl Elis Mesifn Ventralex St Strap Cir Sm 1.7x1.7in - [id number] Implanted:Qty : 1 on 01/12/2021 by Luther Garcia MD at [facility] IMPLANT N/A: Abdomen [employer] 02/10/2022 [id number] / [id number] / [id number] Procedures Procedure Name Priority Date/Time Associated Diagnosis Comments XR WRIST 3 OR MORE VIEWS RIGHT Stat with Interpretation 11/20/2024 11:31 AM CDT Right wrist sprain, initial encounter SALOME SCREENING BILATERAL DIGITAL W CAD W KEVIN Routine 06/20/2024 11:54 AM ACCOUNT REPRESENTATIVE Visit for screening mammogram from Last 3 Months or Most Recently Relevant to Health Maintenance Results * XR WRIST 3 OR MORE VIEWS RIGHT (11/20/2024 11:31 AM CDT) Anatomical Region Laterality Modality UPPER EXTREMITY, wrist Right Digital R adiography 11/20/2024 1:46 PM CDT Impressions 11/20/2024 1:48 PM CDT IMPRESSION: 1. No acute fracture. 2. Prior resection of the trapezium. Adjacent postoperative change. 3. Candia is seen of the radial base of the 2nd metacarpal. 4. Minimal osteoarthritis scaphoid-trapezoid. Narrative 11/20/2024 1:48 PM CDT EXAM DESCRIPTION: XR WRIST 3 OR MORE VIEWS RIGHT REASON FOR STUDY: pt c/o RT lateral wrist pain after hearing pop this morning while pulling shoe on. hx of surgery on wrist last year in Apr. TECHNIQUE: There 3 radiographic view(s) of the right wrist . COMPARISON: No prior. FINDINGS: Patient demonstrates prior resection of the trapezium. Minimal ossifications are seen in the bed. Surgical clips are seen about this area. Candia is seen of the radial base of the 2nd metacarpal. Otherwise, no acute fracture. Minimal osteoarthritis scaphoid-trapezoid. Soft tissues are otherwise unremarkable. THIS IS AN ELECTRONICALLY VERIFIED FINAL REPORT 11/20/2024 1:46 PM - Electronically signed by Florian Ewing M.D. MJ: ERICA Report ID: [id number] Reading Location: [id number] Procedure Note Florian Ewing MD - 11/20/2024 EXAM DESCRIPTION: XR WRIST 3 OR MORE VIEWS RIGHT REASON FOR STUDY: pt c/o RT lateral wrist pain after hearing pop this morning while pulling shoe on. hx of surgery on wrist last year in Apr. TECHNIQUE: There 3 radiographic view(s) of the right wrist . COMPARISON: No prior. FINDINGS: Patient demonstrates prior resection of the trapezium. Minimal ossifications are seen in the bed. Surgical clips are seen about this area. Candia is seen of the radial base of the 2nd metacarpal. Otherwise, no acute fracture. Minimal osteoarthritis scaphoid-trapezoid. Soft tissues are otherwise unremarkable. THIS IS AN ELECTRONICALLY VERIFIED FINAL REPORT 11/20/2024 1:46 PM - Electronically signed by Florian Ewing M.D. MJ: ERICA Report ID: [id number] Reading Location: [id number] IMPRESSION: 1. No acute fracture. 2. Prior resection of the trapezium. Adjacent postoperative change. 3. Candia is seen of the radial base of the 2nd metacarpal. 4. Minimal osteoarthritis scaphoid-trapezoid. [facility] DIAGNOSTIC ORDERABLES Fin al Result * SALOME SCREENING BILATERAL DIGITAL W CAD W KEVIN (06/20/2024 11:54 AM ACCOUNT REPRESENTATIVE) Anatomical Region Laterality Modality breast Bilateral Mammography 06/20/2024 12:0 0 PM ACCOUNT REPRESENTATIVE Narrative 06/21/2024 8:41 AM ACCOUNT REPRESENTATIVE - SALOME SCREENING BILATERAL DIGITAL W CAD W KEVIN BILATERAL DIGITAL SCREENING MAMMOGRAM 3D/2D WITH CAD WITH MEDIOLATERAL OBLIQUE CRANIOCAUDAL: 06/20/2024 The study was acquired using digital technology and interpreted from soft copy. Current study was also evaluated with ICAD version 7.2. 2D digital mammographic views, as well as 3D digital tomosynthesis were performed in the CC and MLO projections. CLINICAL: Routine screening. Patient has no complaints. No personal history of cancer. Maternal aunt and maternal cousin had breast cancer. COMPARISONS: Comparison is made to exams dated: 08/18/2020, 11/28/2018, and 07/23/2022 [facility]. BREAST TISSUE:There are scattered areas of fibroglandular density. FINDINGS: No significant masses, calcifications, or other findings are seen in either breast. There has been no significant interval change. IMPRESSION: NEGATIVE There is no mammographic evidence of malignancy. A 1 year screening mammogram is recommended. A letter will be sent to the patient with these results. The patient will be entered into a reminder system with a target due date of 1 year for her next screening exam. Electronically signed by: Rashad polanco/isidra:06/20/2024 12:27:28 Advertising Traffic Manager(s): RT Fritz(R)(M), [facility] letter sent: Normal Exam Reading location: [facility] Mammogram BI-RADS: Category 1: Negative Procedure Note Rashad Dickinson MD - 06/21/2024 - SALOME SCREENING BILATERAL DIGITAL W CAD W KEVIN BILATERAL DIGITAL SCREENING MAMMOGRAM 3D/2D WITH CAD WITH MEDIOLATERAL OBLIQUE CRANIOCAUDAL: 06/20/2024 The study was acquired using digital technology and interpreted from soft copy. Current study was also evaluated with ICAD version 7.2. 2D digital mammographic views, as well as 3D digital tomosynthesis were performed in the CC and MLO projections. CLINICAL: Routine screening. Patient has no complaints. No personal history of cancer. Maternal aunt and maternal cousin had breast cancer. COMPARISONS: Comparison is made to exams dated: 08/18/2020, 11/28/2018, and 07/23/2022 [facility]. BREAST TISSUE:There are scattered areas of fibroglandular density. FINDINGS: No significant masses, calcifications, or other findings are seen in either breast. There has been no significant interval change. IMPRESSION: NEGATIVE There is no mammographic evidence of malignancy. A 1 year screening mammogram is recommended. A letter will be sent to the patient with these results. The patient will be entered into a reminder system with a target due date of 1 year for her next screening exam. Electronically signed by: Rashad polanco/isidra:06/20/2024 12:27:28 Advertising Traffic Manager(s): RT Fritz(R)(M), [facility] letter sent: Normal Exam Reading location: [facility] Mammogram BI-RADS: Category 1: Negative CATHERINE Moreno APRN MAMMO ORDER FANG Final Result from Last 3 Months or Most Recently Relevant to Health Maintenance Insurance [facility] Advance Directives * Full Code (Latest Code Status on File) Date Activated Date Inactivated Comments 10/31/2022 11:44 AM 11/01/2022 9:02 PM CPR-Full Tr eatment: FULL ARREST: Attempt Resuscitation/CPR wit intubation and mechanical ventilation. PRE-ARREST: Use entire range of life support measures to stabilize the patient. Care Teams Instructor Dancing Relationship Specialty Start Date End Date Priscilla Plummer APRN, TRUCK ENGINE ASSEMBLER [address] [place] [address] PCP - General Advanced Practice Nurse 10/25/18 Luther Garcia MD #[address] [address] Consulting Physician Colon and Rectal Surgery 01/07/21 Mere Martinez APRN, TRUCK ENGINE ASSEMBLER #[address] [address] Nurse Practitioner Advanced Practice Nurse 07/12/22 Jose Montemayor MD [address] [place] [address] Consulting Physician Neurology 02/02/22
--- OUTSIDE RECORDS SUMMARY | 2024-11-26 13:34 | XMS_ITS ---
Author Name DR. Mendez Romero MD B Address [id number] [place] [address] Phone [phone] Organization [facility] Care Team Providers Care Flaker Operator Name Role Phone Mendez Romero Unavailable [phone] Unavailable Unavailable [phone] Reason for Referral Not Available Allergies, adverse reactions, alerts No known allergies History of medication use Medication Class Instructions Start Date End Date traMADol 50 mg Tab TAKE 1 TABLET BY PRO TH EVERY 6 HOURS NEEDED FOR PAIN 2023-03-11 No Data Available Omeprazole 20 mg Cap delayed rel No Data Available 2023-03-24 No Data Available Diclofenac Sodium 75 mg Tab delayed rel TAKE 1 TABLET BY MOUTH TWICE DAILY 2023-03-25 No Data Available Lomaira 8 mg Tab TAKE 1 TABLET BY MOUTH DAILY No Data Available Celecoxib 100 mg Cap TAKE 1 CAPSULE BY M OUTH TWICE DAILY 2023-05-11 No Data Available Meloxicam 15 mg Tab No Data Available 2023-01-31 No Data Available Trulance 3 mg Tab No Data Available 2023-05-12 No Da ta Available ALPRAZolam 0.25 mg Tab No Data Available 2023-08-10 No Data Available ZyrTEC Allergy 10 mg Cap 1 capsule orally daily 08-09 No Data Available Famotidine 20 mg Tab 1 tablet orally maricel ly at bedtime 2023-08-10 No Data Available Problem List Problem Status Onset Date Resolved Date Synopsis Migraine Active 2023-08-10 N/A N/A Anxiety Active 2023-08-10 N/A N/A Encounters Encounters Type Facility Date of Service Diagnosis/Co mplaint new patient, high complexity office visit [place], [place], [place], & [place] - [facility] 08/10/2023 Hypermobile Gurpreet-Danlos syndromeMast cell activation, unspecifiedPostural orthostatic tachycardia syndrome [POTS] moderate complexity office visit [place], [place], [place], & [place] - [facility] 09/21/2023 Gurpreet-Danlos syndrome, unspecifiedGastro-esophageal reflux disease without esophagitisOther specified disorders of muscleUnspecified osteoarthritis, unspecified siteMast cell activation, unspecifiedPelvic and perineal pain Social History Sex Female Gender identity Woman History of Procedures Procedures Service Procedure code Service date Servicing provider Phone# new patient, high complexity office visit [id number] 2023-08-10 No Data Available No Data Availa ble moderate complexity office visit [id number] 2023-09-21 No Data Available No Data Availa ble Functional Status No Information Mental Status No Information Assessments Date of Service Assessments 2023-08-10 13:00:00 Hypermobile Gurpreet-D anlos syndromeMast cell activationPOTS (postural orthostatic tachycardia syndrome) 2023-09-21 15:00:00 Gurpreet-Danlos syndro meGERD (gastroesophageal reflux disease)Pelvic floor painPelvic painOsteoarthritisMast cell activationPlanPlan: Plan of Care Date of Service Plans 2023-08-10 13:00:00 Start Zyrtec 10mg da kim and Pepcid 20, Follow up in 2 months to reassess pain, mobility and MCAS and POTS symptoms. 2023-09-21 15:00:00 moderate complexity office visitFollow up in 1 to 2 months to discuss trial of Naltrexone, trial of increased dosage of zyrtec/famotidine, and results of holter monitor study completed with Residential Service Technician.- Continue physical therapy for core strengtheningWill need to identify a compounding pharmacy for Naltrexone- Possible Location in [place]- May Need assistance finding Compounding Pharmacy in their area (expect diana to be $60 per month)- Consider Pelvic Floor Physical Therapy. Patient to check with current PT to see if they offer Pelvic Floor Therapy. Patient to also call Insurance company to find other pelvic floor PT in their area.- Trial of twice per day Zyrtec 10mg and Famotidine 20mg for at least two weeks.- Low Dose Naltrexone: Start with 1mg for 2 weeks, then 2mg for 2 weeks, then 3 mg for 2 weeks, then 4 mg for two weeks, and 4.5 mg for 2 weeks.
--- OUTSIDE RECORDS SUMMARY | 2024-11-26 13:34 | XMS_ITS | Clinical Summary ---
Author Organization [facility] Address [address] [place] [address] Care Team Providers Care Billing Typist Name Role Phone Priscilla Plummer NP Primary Care Provide r Jake Frazier MD Unavailable [phone] Jose Martin Kunz DPM Unavailable [phone] Elio Ghotra OT Unavailable Unavailable Luis Carlos Lopez MD Unavailable [phone] Allergies Active Allergy Reactions Criticality Noted Date [...] by mouth daily 30 tablet/chew tab 08/31/19 Active aspirin 81 mg enteric coated tabletIndications: Deep Vein Thrombosis Prevention Take 1 tablet (81 mg total) by mouth 2 (two) times a day 84 tablet 08/31/19 Active Additional Information Patient not taking.Reported on 10/25/2024 celecoxib (CeleBREX) 200 mg capsuleIndications :Pain Take 1 capsule (200 mg total) by mouth 2 (two) times a day 84 capsule 08/31/19 Active Additional Information Patient not taking.Reported on 10/25/2024 ondansetron ODT (ZOFRAN-ODT) 4 mg disintegrating tabletIndications: nausea and vomiting Take 1 tablet (4 mg total) by mouth every 6 (six) hours as needed for nausea or vomiting 20 tablet 2 08/31/19 Active Additional Information Patient not taking.Reported on 10/25/2024 oxyCODONE-acetamin ophen (PERCOCET) 5-325 mg per tabletIndications: Pain Take 1 tablet by mouth every 4 (four) hours as needed for pain 40 tablet 08/31/19 Active Additional Information Patient not taking.Reported on 10/25/2024 senna-docusate (PERICOLACE) 8.6-50 mgIndications:cons tipation Take 2 tablets by mouth 2 (two) times a day 60 tablet 2 08/31/19 Active Additional Information Patient not taking.Reported on [...] 02/06/2024 Assessment & Plan (05/03/2024 2:49 PM ADMINISTRATIVE AIDE): 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 On meloxicam. Continue joint protection. Assessment & Plan (04/17/2024 11:12 AM ADMINISTRATIVE AIDE): Diagnosed with hypermobility EDS per she noticed [...] hematoma Assessment & Plan (05/03/2024 2:49 PM ADMINISTRATIVE AIDE): Aleta is a pleasant 59-year-old female that [...] Frazier. Assessment & Plan (04/17/2024 11:32 AM ADMINISTRATIVE AIDE): Aleta is a pleasant 58-year-old female that [...] EMR. Assessment & Plan (03/30/2024 2:09 PM ADMINISTRATIVE AIDE): Aleta is a pleasant 58-year-old female previously [...] EMR. Assessment & Plan (06/28/2023 3:34 PM ADMINISTRATIVE AIDE): Aleta is a pleasant 58-year-old female presented [...] arise. Assessment & Plan (06/14/2023 2:43 PM ADMINISTRATIVE AIDE): Aleta is a pleasant 58-year-old female presenting [...] 06/14/2023 Assessment & Plan (06/28/2023 3:33 PM ADMINISTRATIVE AIDE): Most recent DEXA scan displayed osteopenia. With that said, given numerous fragility fractures, this appears most consistent with osteoporosis. Given her osteoporosis and fragility fracture history, would recommend treatment with Evenity, Forteo, or Tymlos. Will check vitamin-D level and few additional labs today. Is scheduled to see bone health in January. Assessment & Plan (06/14/2023 2:45 PM ADMINISTRATIVE AIDE): Most recent DEXA scan displayed osteopenia. With that said, given numerous fragility fractures, this appears most consistent with osteoporosis. Given her osteoporosis and fragility fracture history, would recommend treatment with Evenity, Forteo, or Tymlos. Will check vitamin-D level and few additional labs today. Is scheduled to see bone health in January. Vitamin D deficiency 11/09/2022 Assessment & Plan (06/28/2023 3:33 PM ADMINISTRATIVE AIDE): Recent labs displayed mildly low vitamin-D. On [...] (02/22/2022): Added automatically from request for surgery [id number] Elevated C-reactive protein 04/28/2021 Atherosclerosis of aorta [...] be referred to bone health specialist @ [facility] or [facility] if bone density still stable . [...] Primary osteoarthritis of right knee 04/24/2024 09/19/2024 Encounters Date Type Department Care Team Description 11/20/2024 Telephone [facility] Surgery [address] 6th [place] [address] [place] [address] Annmarie Ding RN 10/25/2024 9:00 AM CDT Office Visit [facility] Orthopedics and Sports Medicine [address] [place] [address] [address], [place] [address] Iliana Nuñez PA Aftercare following right knee joint replacement surgery (Primary Dx) 10/25/2024 7:40 AM CDT - 10/25/2024 11:59 PM CDT Hospital Encounter [facility] Orthopedics and Sports Medicine [address] [place] [address] Discharge Disposition: Discharge to home or self care 10/15/2024 Documentation [facility] Occupational Therapy [address] [place] [address] Jodie Dc OT 09/26/2024 7:45 AM CDT Therapy [facility] Physical Therapy - [place] [address] Car Kilpatrick, PT S/P total knee arthroplasty, right (Primary Dx) 09/24/2024 7:45 AM CDT Therapy [facility] Physical Therapy - [place] [address] Cra Kilpatrick, PT S/P total knee arthroplasty, right (Primary Dx) 09/21/2024 1:45 PM CDT Therapy [facility] Physical Therapy - [place] [address] Car Kilpatrick, PT S/P total knee arthroplasty, right (Primary Dx) 09/20/2024 1:00 PM CDT Telemedicine [facility] Medical Group Orthopedics and Sports Medicine [address] [place] [address] Iliana Nuñez PA Aftercare following right knee joint replacement surgery (Primary Dx) 09/18/2024 8:30 AM CDT Therapy [facility] Physical Therapy - [place] [address] Car Kilpatrick, PT S/P total knee arthroplasty, right (Primary Dx) 09/13/2024 10:15 AM CDT Therapy [facility] Physical Therapy - [place] [address] Car Kilpatrick, PT S/P total knee arthroplasty, right (Primary Dx) 09/11/2024 7:00 AM CDT Therapy [facility] Physical Therapy [place] [address] Car Kilpatrick, PT S/P total knee arthroplasty, right (Primary Dx) 09/07/2024 [facility] Post Discharge Follow up phone call [facility] Surgery Care [address] [place] [address] Becca Lopez 09/04/2024 1:45 PM CDT Therapy [facility] Physical Therapy - [place] [address] Frank Fischer, PT S/P total knee arthroplasty, right (Primary Dx) 09/04/2024 Plan of Care Documentation [facility] Physical Therapy - [place] [address] 08/31/2024 Orders Only [facility] Medical [facility] Orthopedics and Sports Medicine [address] [place] [address] [address] [place] [address] Iliana Nuñez PA 08/30/2024 Documentation [facility] Social Work [address] [place] [address] Ayesha Lucio MSW 08/30/2024 Orders Only [facility] Orthopedics and Sports Medicine [address] [place] [address] [address] [place] [address] Iliana Nuñez PA S/P total knee arthroplasty, right (Primary Dx) 08/30/2024 Telephone [facility] Orthopedics and Sports Medicine [address] [place] [address] [address] [place] [address] Iliana Nuñez PA 08/29/2024 10:00 AM CDT - 08/29/2024 12:30 PM CDT Surgery [facility] Operating Room [address] [place] [address] Luis Carlos Lopez MD Right Total Knee Arthroplasty with Patella Resurfacing 08/29/2024 9:43 AM CDT Anesthesia Event [facility] Operating Room [address] [place] [address] Hamida Mak MD Reynolds, Ethan Emerson, MD 08/29/2024 7:17 AM CDT - 08/30/2024 10:47 AM CDT Hospital Encounter [facility] Surgery Care [address] [place] [address] Luis Carlos Lopez MD Primary osteoarthritis of right knee Discharge Disposition: Discharge to home or self care from Last 3 Months Surgical History Surgery Date Site/Laterality Comments CHOLECYSTECTOMY 05/16/2013 - 05/15/2014 Cholecystectomy HYSTERECTOMY 05/16/2007 - 05/15/2008 EXPLORATORY LAPAROTOMY 12/14/2020 - 01/13/2021 and UHR SINUS SURGERY 05/16/2011 - 05/15/2012 and 2013 TONSILLECTOMY 05/16/2002 - 05/15/2003 INTERTROCHANTERIC HIP FRACTU RE SURGERY 05/16/2021 - 05/15/2022 HAND SURGERY Medical History Medical History Date Comments Gastroesophageal reflux disease GERD Disorder of gallbladder Gallblad yomaira disease Broken bones Broken 7 bones i n last 2 years Constipation Carpal tunnel syndrome Gurpreet-Danlos disease Family History Medical History Relation Name Comments Osteoporosis Mother Arthritis Other Cancer Other Diabetes Other Heart disease Other Kidney disease Other Other Other Family history of gallbladder; Anesthesia problems Neg Hx Broken bones Neg Hx Hip fracture Neg Hx Kyphosis Neg Hx Scoliosis Neg Hx Relation Name Status Comments Mother Other Social History Tobacco Use Types Packs/Day Years [...] on file Legal Sex Female 12:52 AM ADMINISTRATIVE AIDE Gender Identity Not on file Sexual Orientation Not on file 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 Not on file Not on file Not on file Obstetrics History Para Term AB IAB SAB Ectopic Multiple Livin g Live Births 2 2 2 2 2 Date Outcome GA Total Labor Labor/2nd/3rd Weight Sex Type Anes PTL Roya A1 A5 Name Clin 1988 Term 3.459 kg (7 lb 10 oz) F Vag-S pont Living 1997 Term 4.451 kg (9 lb 13 oz) M Vag-S pont Living Last Filed Vital Signs Vital Sign Reading [...] Description 01/10/2025 7:30 AM CDT Hospital Encounter [facility] [address] [place] [address] Najma Wagner MD PhD [address] [facility] [place] [address] 01/10/2025 7:30 AM CDT - 01/10/2025 10:20 AM CDT Surgery [facility] Operating Room [facility] [place] [address] Najma Wagner MD PhD [address] [place] [address] TRAPEZIECTOMY - INTERNAL BRACE - LEFT thumb trapeziectomy with tendon suspensionplasty and Arthrex internal brace augmentation Scheduled Procedures Name Priority Associated Diagnoses Date/Ti me TRAPEZIECTOMY - INTERNAL BRACE Arthritis of carpometacarpal (CMC) joint of left thumb 01/10/2025 7:30 AM CDT Health Maintenance Due Date Last Done Comments Colon Cancer Screening-Colonoscopy 1965 Hepatitis B Screening 1982 Regular Well Visit/Exam 18-64 12/01/2023 11/30/2022, 11/03/2021 Covid-19 Vaccine ( season) 2024 03/24/2021, 07/18/2020, 06/28/2020 Influenza Vaccine (#1) 2025 , 03/02/2023, 04/10/2022, Additional history exists Breast Cancer Screening-Mammogram 06/20/2025 06/20/2024, 06/20/2024, 07/23/2022, Additional history exists Depression Screening 08/21/2025 08/21/2024 DTaP/Tdap/Td Vaccine (3 - Td or Tdap) 10/22/2027 10/21/2017, 12/16/2015 Zoster Vaccine Completed 02/20/2021, 12/02/2020 Hepatitis C Screening Completed 06/14/2023, 014 Pneumococcal vaccine <65 Aged Out No longer eligible based on patient's age to complete this topic Medical Devices Implanted Type Area Cook Manager Device Identifier Shelf Expiration Date Model / Serial / Lot [employer] Suture [place] Knotless Fibertak Resorbable Cx1380-Xg - S0 - [id number] Implanted:Qty: 1 on 05/10/2024 by Najma Wagner MD PhD at [facility] Other - see comments Right: Hand [employer] [id number] 01/13/2029 VQ5654-[id number] / 0 / [id number] [employer] Corkscrew Fiberwire 2.2mm 4mm 17.9mm 2 Needle Wire Foot Ankle 2-0 Ar-1318ft - S0 - [id number] Implanted:Qty: 1 on 05/10/2024 by Najma Wagner MD PhD at [facility] Other - see comments Right: Hand [employer] [id number] 02/12/2029 AR-1318FT / 0 / [id number] Synthes 7.3mm 8.2mm 2.9mm 130mm Cannulated Self Tap Self Drill 209.730 - [id number] Implanted:Qty: 1 on 03/01/2022 by Farhat Owens MD at [facility] Screw Synthes I 209.730 / / 209.730 [employer] Cement Bone Medium Viscosity Half Dose Hemiarthroplpasty Cmw 20gm Pmma 3322-020 - [id number] Implanted:Qty: 1 on 08/29/2024 by Luis Carlos Lopez MD at [facility] Right: Knee [employer] 12/13/2026 3322-020 / / [id number] [employer] Attune Fb Tib Base Sz 5 Por [id number] - [id number] Implanted:Qty: 1 on 08/29/2024 by Luis Carlos Lopez MD at [facility] Right: Knee [employer] [id number] 03/15/2033 [id number] / / [id number] [employer] Attune Cruciate Retain Cementless Knee Right 5 Component Femoral [id number] - [id number] Implanted:Qty: 1 on 08/29/2024 by Luis Carlos Lopez MD at [facility] Right: Knee [employer] [id number] 07/13/2034 [id number] / / [id number] [employer] Attune 32mm Cemented Medialize Knee Dome Patellar Aox Sterile [id number] - [id number] Implanted:Qty: 1 on 08/29/2024 by Luis Carlos Lopez MD at [facility] Right: Patella [employer] [id number] 06/15/2032 [id number] / / [id number] [employer] Insert Tibial Knee Fixed Rm Posterior Stabilized Attune 7mm Size 5 Polyethylene [id number] - [id number] Implanted:Qty: 1 on 08/29/2024 by Luis Carlos Lopez MD at [facility] Right: Patella [employer] 06/15/2032 [id number] / / [id number] Procedures Procedure Name Priority [...] [Robotic, Depuy- Attune and Patella], Velys, Cooling Unit-[facility], 1 Liter Beta Rinse, Pt to Stay PROTIME-INR STAT 08/29/2024 7:47 AM CDT APTT STAT 08/29/2024 7:47 AM CDT HEPATITIS C ANTIBODY Routine 06/14/2023 2:42 PM ADMINISTRATIVE AIDE Polyarthralgia Osteoporosis, unspecified osteoporosis type, unspecified pathological [...] in good position with no interval change. Iliana FUNG IMG XR PROCEDURES Fin al [...] 3:22 AM CDT 08/30/2024 4:29 AM CDT Iliana FUNG LAB BLOOD ORDERABLES Final Result [facility] [address] Department of Laboratories [place], [place] [id number] * (ABNORMAL) CBC without differential (08/30/2024 3:22 AM CDT) WBC 12.29(H) 3.80 - 9.90 K/cumm Hgb 11.5(L) 11.9 - 15.5 g/dL [facility] Hct 34.1(L) 35.6 - 45.5 % [facility] Plt 248 150 - 400 K/cumm [facility] ([place] MPV 11.6 9.1 - 12.3 fL [facility] RBC 3.78(L) 3.90 - 5.20 M/cumm [facility] MCV 90.2 81.3 - 96.4 fL [facility] MCH 30.4 27.1 - 33.3 pg [facility] MCHC 33.7 32.3 - 35.7 g/dL [facility] RDW CV 12.0 11.1 - 14.9 % [facility] RDW SD 39.5 35.7 - 48.1 fL [facility] ([place] NRBC abs 0.00 0.00 - 0.01 K/cumm [facility] Blood 08/30/2024 3:22 AM CDT 08/30/2024 4:28 AM CDT Iliana FUNG LAB BLOOD ORDERABLES Final Result [facility] [address] [place] [address] * Basic metabolic panel (08/30/2024 3:22 AM CDT) Sodium 137 135 - 145 mmol/L Potassium, pl 4.7 3.3 - 4.9 mmol/L [facility] Chloride 103 97 - 110 mmol/L [facility]) CO2 23 22 - 32 mmol/L [facility] Anion gap 12 2 - 15 mmol/L [facility] BUN 17 6 - 25 mg/dL [facility] Creatinine 0.76 0.60 - 1.10 mg/dL [facility] Glucose 157 70 - 199 mg/dL [facility] Comment: Interpretive Data Fasting glucose >/= [...] 2022. Calcium 8.8 8.5 - 10.3 mg/dL [facility] Blood 08/30/2024 3:22 AM CDT 08/30/2024 4:29 AM CDT Iliana FUNG LAB BLOOD ORDERABLES Final Result [facility] [address] [place] [address] * Surgical pathology (08/29/2024 2:10 PM CDT) Tissue (Bone Fragment(s),) 08/29/2024 10:23 AM CDT Narrative [facility] - 08/31/2024 9:51 AM CDT EPIC results best viewed via link to PDF [facility] Department of Pathology [address] [place] [id number] Note to Patients: This report may contain [...] Final Report Patient Name: ALETA YUN Address: [address] [place] [address] Gender: F : 1965 (Age: 59) Service: Surgery Location: [facility] Hospital #: [id number] Patient Type: [facility] OP in bed Taken: 08/29/2024 Received: [...] and represented in two cassettes. Uriah Hutchinson R.N., P.A./Marizol Martinez M.D. REPORT IMAGES AND SCANNED DOCUMENTS, IF INCLUDED, ONLY VIEWABLE IN PDF VERSION OF REPORT The performance characteristics of some immunohistochemical stains, fluorescence in-situ hybridization tests and immunophenotyping by flow cytometry cited in this report (if any) were determined by the Surgical Pathology Department at [facility] as part of an ongoing customer quality specialist program and in compliance with federally mandated [...] characteristics determined by the Surgical Pathology Department [facility]. It has not been cleared or approved by the U. S. Food and Drug Administration. Note for decalcified specimens: This assay has not been validated on decalcified tissues. Results should be interpreted with caution given the possibility of false negativity on decalcified specimens Luis Carlos Lopez MD LAB PATHOLOGY ORDERABLES Final Result [facility] [address] [place] [address] * XR Knee Right 1 or 2 View (08/29/2024 11:52 AM CDT) Anatomical Region Laterality Modality Lower Extremities, Knee Right Computed Radiography 08/29/2024 3:08 PM CDT Narrative 08/29/2024 3:11 PM CDT [...] Jaxson Segura M.D. MF: BRYNN Report ID: [id number] Reading Location: [id number] Procedure Note Jaxson Segura MD - 08/29/2024 [...] Jaxson Segura M.D. MF: BRYNN Report ID: [id number] Reading Location: [id number] [place] Iliana FUNG IMG XR PROCEDURES Fin al Result * Spinal Block (08/29/2024 9:58 AM CDT) Narrative Alphonso Waldrop CRNA - 08/29/2024 9:58 AM CDT Alphonso Waldrop CRNA 08/29/2024 9:58 AM Spinal Block Patient location: OR End time: 08/29/2024 9:48 AM Reason for block: primary anesthetic Staff: Supervising provider: Hamida Mak MD Placed by: BIOINFORMATICS ENGINEER:Alphonso Waldrop CRNA Procedure prep: Preprocedure checklist: patient [...] complications Additional comments: Placed by SHAD Bailey Result [facility] Hamida Mak MD ANESTHESIA ORDERABLES Fi nal Result * aPTT (08/29/2024 7:47 AM CDT) aPTT 36 28 - 38 sec [facility] Comment: Interpretive Data Heparin therapeutic range: 66.0 - 100.0 seconds. Range based on correlation with therapeutic heparin activity range of 0.3 - 0.7 Units/mL. Current interpretive data was last revised on 2023. Blood 08/29/2024 7:47 AM CDT 08/29/2024 8:03 AM CDT Luis Carlos Lopez MD LAB BLOOD ORDERABLES Fin al Result Performing Organization Address [facility] de Phone Number [facility] [address] [facility] [place] [address] * Protime-INR (08/29/2024 7:47 AM CDT) PT 11.4 9.7 - 13.0 sec [facility] INR 1.05 0.90 - 1.20 [facility] Comment: Interpretive data Oral anticoagulant therapeutic ranges: Venous thromboembolism prophylaxis or treatment: 2.0-3.0 CARDIOLOGY Standard range: 2.0-3.0 High-intensity range: 2.5-3.5 Refer to indication-specific guidelines for appropriate target ranges for prosthetic heart valve replacement. Current interpretive data was last revised on 2019. Blood 08/29/2024 7:47 AM CDT 08/29/2024 8:03 AM CDT Luis Carlos Lopez MD LAB BLOOD ORDERABLES Fin al Result Performing Organization Address [facility] [place] [facility] de Phone Number [facility] [address] [place] [address] * Hepatitis C antibody Blood (06/14/2023 2:42 PM ADMINISTRATIVE AIDE) Hep C Ab NON-REACTI VE NON-REACT KENDALL [facility] Comment: HCV antibody was non-reactive. There is no laboratory evidence of HCV infection. In most cases, no further action is required. However, if recent HCV exposure is suspected, a test for HCV RNA (test code 98765) is suggested. For additional information please refer to http://education.Zeppelin.Twitmusic/faq/WVG11i9 (This link is being provided for informational/ educational purposes only.) Blood 06/14/2023 2:42 PM ADMINISTRATIVE AIDE 06/14/2023 2:42 PM ADMINISTRATIVE AIDE Jaxson FUNG LAB MICROBIOLOGY - GENE RAL ORDERABLES Final Result Performing Organization Address [facility] Co de Phone Number [employer] [address] [address] * DIGITAL MAMMOGRAPHY (03/15/2014 12:37 PM CDT) Anatomical Region Laterality Modality Breast Mammography 03/15/2014 12:3 7 PM CDT Narrative 03/15/2014 10:48 PM CDT Mammogram Performed by: CD Screening Mamm Bi Acc#: [id number] DATE OF EXAM: Mar 15 2014 CLINICAL [...] 2014 10:48P Ordering DR: VIMAL LLOYD Attending DR: VIMAL LLOYD Procedure Note Provider, MD Ivis - 09/10/2016 Mammogram Performed by: CD Screening Mamm Bi Acc#: [id number] DATE OF EXAM: Mar 15 2014 CLINICAL [...] 15 201410:48P Ordering DR: VIMAL LLOYD Attending DR: VIMAL LLOYD us Historical Provider MD GODWIN MAMMO PROCEDURES Tara l Result from Last 3 Months or Most Recently Relevant to Health Maintenance Insurance Click With Me Now ID Click With Me Now ID BLUE TRADITIONAL [place] Advance Directives For more information, please contact: [phone] * Full Code (Latest Code Status on File) Date Activated Date Inactivated Comments 08/29/2024 1:04 PM 08/30/2024 2:48 PM Care Teams Billing Typist Relationship Specialty Start Date End Date Priscilla Plummer NP [address] [place] [id number] PCP - General 09/27/21 Jake Frazier MD [address] [place] [address] Consulting Physician Rheumatology 05/20/23 Jose Martin Kunz DPM [address] [place] [address] Consulting Physician Orthotics 04/17/24 Elio Ghotra OT Occupational Therapist Occupational Therapy 08/22/24 Luis Carlos Lopez MD [address] [place] [address] [address] Surgeon Orthopedic Surgery 08/30/24
--- OUTSIDE RECORDS SUMMARY | 2024-11-26 13:34 | XMS_ITS | Clinical Summary ---
Author Organization [facility] e Address [address] [place] [address] Care Team Providers Care Anatomical Embalmer Name Role Phone Unavailable Primary Care Provider Unavailabl e Allergies No known active allergies Medications SUMAtriptan (IMITREX) 100 mg Oral tabletIndicati ons:Migraine headache Take 1 Tab by mouth every 12 hours as needed for Migraine. 9 Tab 12 2 Active rizatriptan (MAXALT) 10 mg Tablet TAKE ONE TABLET BY MOUTH EVERY 2 HOURS NEEDED FOR MIGRAINE. MAY REPEAT IN 2 HOURS. MAX DOSE OF 3 TABS (30MG) IN 24 HOURS. 9 Tab 3 5 Active multivitamin (DAILY-YOVANNY) tablet Take 1 Tablet by mouth daily. Active HYDROcodone-ac etaminophen (NORCO) 5-325 mg tablet Take 1 Tablet by mouth every 6 hours as needed for Pain. Max Daily Amount: 4 Tablet 30 Tablet 0 6 Active omeprazole (PriLOSEC) 40 mg Capsule, Delayed Release(E.C.) Take 1 Capsule (40 mg) by mouth every 12 hours. 30 Capsule 0 6 Active rizatriptan (MAXALT) 10 mg Tablet TAKE ONE TABLET BY MOUTH EVERY 2 HOURS NEEDED FOR MIGRAINE. MAY REPEAT IN 2 HOURS. MAX DOSE OF 3 TABS (30MG) IN 24 HOURS. 9 Tablet 3 6 Active fluticasone (FLONASE) 50 mcg/spray [place], Suspension USE 2 SPRAYS IN THE LEFT NOSTRIL DAILY 48 Gram 3 7 Active hyoscyamine 0.125 mg Tablet, SublingualIndi cations:Functi onal dyspepsia Place 1 Tablet (0.125 mg) under tongue every 4 hours as needed (abdominal discomfort) . 45 Tablet 2 7 Active dicyclomine (BENTYL) 10 mg capsule Take 1 Capsule (10 mg) by mouth 4 times daily. 30 Capsule 3 7 Active ALPRAZolam (XANAX) 0.25 mg tablet TAKE ONE TABLET BY MOUTH THREE TIMES DAILY NEEDED FOR ANXIETY 30 Tablet 3 7 Active benzonatate (TESSALON) 200 mg capsule Take 1 Capsule (200 mg) by mouth 3 times daily. 50 Capsule 7 Active codeine-guaiFE Nesin (ROBITUSSIN-AC ) 10-100 mg/5 mL Liquid Take 10 mL by mouth every 4 hours as needed for Cough. 240 mL 7 Active IBUPROFEN 800 mg Oral TabIndications :Arthritis,Ryan emily headache Take 800 mg by mouth every 6 hours as needed for Pain. 03/18/20 14 Discontinued Active Problems Problem Noted Date Diagnosed Date Hypothyroidism, adult 07/24/2014 Overview (08/06/2014): Begin supplement 07/2014. Some tingling of the fingers GERD (gastroesophageal reflux disease) 0 Insomnia 10/24/2009 Depression 12/29/2008 Migraine without aura 10/18/2008 Arthritis 10/18/2008 Overview (10/18/2008): Wrists, elbows, and knees Resolved Problems Problem Noted Date Diagnosed Date Resolved Date Dehydration 07/24/2014 08/06/2014 Acute kidney injury (nontrau matic), due to mild dehydration 07/24/2014 08/06/2014 Elevated glucose 07/24/2014 08/06/2014 Chest pain 07/23/2014 08/06/2014 Dyspnea 07/23/2014 08/06/2014 Immunizations Immunization Administration Dates Next Due (ADACEL/BOOSTRIX)(10 YR UP) TDAP VACCINE, 0.5ML, IM 10/21/2017,12/16/2015 (SHINGRIX)(50 YRS UP) ZOSTER VACCINE RECOMBINANT, 0.5 ML, IM 12/02/2020 INFLUENZA VACCINE QUADRIVALENT 3 YR UP PF IM 04/2015 Family History Medical History Relation Name Comments Cancer Father stomach Other Maternal Grandfather Other Maternal Grandmother Diabetes Mother Hypertension Mother Kidney Disease Mother Heart Disease Paternal Grandfather Heart Disease Paternal Grandmother Celiac Disease Neg Hx Colon Cancer Neg Hx Colon Polyps Neg Hx Crohn's Disease Neg Hx GERD Neg Hx Liver Disease Neg Hx Ulcerative Colitis Neg Hx Ulcers Neg Hx Relation Name Status Comments Father stomach Maternal Grandfather Maternal Grandmother Mother type 1 DM Paternal Grandfather Paternal Grandmother Social History Tobacco Use Types Packs/Day Years Used Date Smoking Tobacco: Never Smokeless Tobacco: Never Tobacco Cessation:Counseling Given: Yes Alcohol Use Standard Drinks/Week Comments Yes 0 (1 standard drink = 0.6 oz pur e alcohol) occasional glass of wine Comments No Sex and Gender Information Value Date Recorded Sex Assigned at Not on file Legal Sex Female 5:42 AM 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 Gender Identity Not on file Sexual Orientation Not on file Occupation Industry Job Start Date Job End Date Not on file Not on file Not on file Not on file Last Filed Vital Signs Vital Sign Reading Time Taken Comments Blood Pressure 130/76 06/24/2016 3:14 PM COLLECTOR 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 Pulse 88 06/24/2016 3:14 PM COLLECTOR 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 Temperature 36.7 C (98 F) 06/07/2016 6:55 PM COLLECTOR 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 Respiratory Rate 18 06/07/2016 6:55 PM COLLECTOR 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 Oxygen Saturation 96% 06/07/2016 6:55 PM COLLECTOR 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 Inhaled Oxygen Concentration - - Weight 105.1 kg (231 lb 9.6 oz) 06/24/2016 3:14 PM COLLECTOR 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 Height 172.7 cm (5' 8) 06/24/2016 3:14 PM COLLECTOR 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 Body Mass Index 35.21 06/24/2016 3:14 PM COLLECTOR 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 Plan of Treatment Health Maintenance Due Date Last Done Comments HPV/Cotest (21-29) 1985 CERVICAL CANCER SCREENING 1994 HPV/Cotest (30-65) 1994 PAP SMEAR 1994 BREAST CANCER SCREENING 2004 FIT-DNA Q 3 years 2009 FIT/FOBT Q 1 year 2009 Flex Sig/CT Colonography Q 5 years 2009 ZOSTER VACCINE (2 of 2) 01/27/2021 12/02/2020 COLORECTAL SCREENING 07/09/2024 07/09/2014, 07/09/2014 Colorectal Cancer Screening 07/09/2024 INFLUENZA VACCINE (#1) 2024 07/25/2014 DTAP/TDAP/TD VACCINES (3 - T d or Tdap) 10/22/2027 10/21/2017, 12/16/2015 RSV VACCINE (60+ or ) (1 - 1-dose 75+ series) 2039 HEPATITIS B VACCINES Aged Out No long er eligible based on patient's age to complete this topic Medical Devices Implanted Type Area Play Writer Device Identifier Shelf Expiration Date Model / Serial / Lot Stent Pncrtc Frmn Flx 5fr 5cm 6552 - [id number] Implanted:Qty: 1 on 07/26/2014 by Wolf Aguirre MD at [facility] Stent N/A: Bile Duct [employer] 03/28/2019 6552 / / [id number] Advance Directives For more information, please contact: [phone] * Full Code (Latest Code Status on File) Date Activated Date Inactivated Comments 07/24/2014 12:40 PM 07/27/2014 5:53 PM * Full Code Date Activated Date Inactivated Comments 07/09/2014 11:54 AM 07/09/2014 4:43 PM * Full Code Date Activated Date Inactivated Comments 12/31/2011 3:08 PM 01/03/2012 9:35 AM * Full Code Date Activated Date Inactivated Comments 12/31/2011 2:30 PM 12/31/2011 3:08 PM * Full Code Date Activated Date Inactivated Comments 12/31/2011 2:07 PM 12/31/2011 2:30 PM
--- OUTSIDE RECORDS SUMMARY | 2024-11-26 13:34 | XMS_ITS | Encounter Summary ---
Author Organization [facility] Address [address] [place] [address] Phone Care Team Providers Care Principal Account Clerk Name Role Phone Priscilla Plummer APRN, CATHERINE Primary Care P rovider Luther Garcia MD Unavailable Mere Martinez APRN, HOTEL SUPERINTENDENT Unavailable [phone] Jose Montemayor MD Unavailable [phone] Reason for Visit * Reason Comments Medication Refill Encounter Details Date Type Department Care Team (Late st Contact Info) Description 08/17/2022 Refill [facility] - Primary Care - Maria Del Carmen [address] [place] [address] Priscilla Plummer APRN, HOTEL SUPERINTENDENT [address] [place] [address] Medication Refill Social History Tobacco [...] suspected to have Coronavirus/COVID-19? No / Unsure 07/26/2022 7:11 PM CDT documented as of this encounter Miscellaneous Notes * Telephone Encounter - Jana Arevalo RN - 08/17/2022 11:45 AM CDT Duplicate request. documented in this encounter Plan of Treatment Upcoming Encounters Date Type Department Care Team (Late st Contact Info) Description 01/31/2025 10:00 AM CDT [facility] [address] [place] [address] Luther Garcia MD #[address] [address] 01/31/2025 10:00 AM CDT - 01/31/2025 10:30 AM CDT [facility] [address] [place] [address] Luther Garcia MD #[address] [address] COLONOSCOPY Scheduled Procedures Name Priority Associated Diagnoses Date/Ti me COLONOSCOPY SCREENING FOR COLON CANCER 01/31/2025 10:00 AM CDT documented as of this encounter Visit Diagnoses Not on filedocumented in this encounter Additional Health Concerns Assessment Noted Time PHQ-9 Depression Total Score: 0 07/04/19 21 1:00 PM SLICING MACHINE TENDER documented as of this encounter Care Teams Principal Account Clerk Relationship Specialty Start Date End Date Priscilla Plummer APRN, HOTEL SUPERINTENDENT [address] [place] [address] PCP - General Advanced Practice Nurse 10/25/18 Luther Garcia MD #[address] [address] Consulting Physician Colon and Rectal Surgery 01/07/21 Mere Martinez APRN, HOTEL SUPERINTENDENT #[address] [address] Nurse Practitioner Advanced Practice Nurse 07/12/22 Jose Montemayor MD #2 [place] [id number] Consulting Physician Neurology 02/02/22 documented as of this encounter
--- OUTSIDE RECORDS SUMMARY | 2024-11-26 13:34 | XMS_ITS | Encounter Summary ---
Author Organization [facility] Address [address] [place] [address] Care Team Providers Care Railway Track Plant Operator Name Role Phone Priscilla Plummer NP Primary Care Provide r Jake Frazier MD Unavailable [phone] Jose Martin Kunz DPM Unavailable [phone] Elio Ghotra OT Unavailable Unavailable Luis Carlos Lopez MD Unavailable Encounter Details Date Type Department Care Team (Late st Contact Info) Description 08/30/2024 Documentation [facility] Social Work [address] [place] [address] Ayesha Lucio MSW Social History Tobacco Use Types Packs/Day Years [...] on file Legal Sex Female 12:52 AM 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 BOX BENDER delivered at bedside. documented in this encounter Plan of Treatment Upcoming Encounters Date Type Department Care Team (Latest Contact Info) Description 01/10/2025 7:30 AM CDT Hospital Encounter [facility] [address] [place] [address] Najma Wagner MD PhD [address] [facility] [place] [address] 01/10/2025 7:30 AM CDT - 01/10/2025 10:20 AM CDT Surgery [facility] [address] [place] [address] Najma Wagner MD PhD [address] [place] [address] TRAPEZIECTOMY - INTERNAL BRACE - LEFT thumb trapeziectomy with tendon suspensionplasty and Arthrex internal brace augmentation Scheduled Procedures Name Priority Associated Diagnoses Date/Ti me TRAPEZIECTOMY - INTERNAL BRACE Arthritis of carpometacarpal (CMC) joint of left thumb 01/10/2025 7:30 AM CDT documented as of this encounter Visit Diagnoses Not on filedocumented in this encounter Care Teams Railway Track Plant Operator Relationship Specialty Start Date End Date Priscilla Plummer NP [address] [place] [address] PCP - General 09/27/21 Jake Frazier MD [address] [place] [address] Consulting Physician Rheumatology 05/20/23 Jose Martin Kunz DPM [address] [place] [address] Consulting Physician Orthotics 04/17/24 Elio Ghotra OT Occupational Therapist Occupational Therapy 08/22/24 Luis Carlos Lopez MD [address] [place] [address] [place] [address] Surgeon Orthopedic Surgery 08/30/24 documented as of this encounter
--- OUTSIDE RECORDS SUMMARY | 2024-11-26 13:34 | XMS_ITS | Encounter Summary ---
Author Organization [facility] Address [address] [place] [address] Phone Care Team Providers Care Riveter Helper Name Role Phone Priscilla Plummer APRN, CATHERINE Primary Care P rovider Luther Garcia MD Unavailable Mere Martinez APRN, CNP Unavailable Jose Montemayor MD Unavailable [phone] Encounter Details Date Type Department Care Team (Late st Contact Info) Description 11/20/2024 Results Follow-Up [facility] - [facility] [place] [address] [place], [place] [phone] Mendez Royal PAC [address] [place] [id number] XR WRIST 3 OR MORE VIEWS RIGHT Social History Tobacco Use Types Packs/Day Years Used Date Smoking Tobacco: Never Smokeless Tobacco: Never Alcohol Use Standard Drinks/Week Comments Not Currently 0 (1 standard drink = 0.6 oz pur e alcohol) RARELY C Utilities Answer Date Recorded In the past 12 months has e electric, gas, oil, or water company threatened to shut off services in your [...] week 08/12/2024 How often do you attend chur ch or pentecostalism services? 1 to 4 times per year 08/12/2024 Do you belong to any clubs o r organizations such as adventist groups, unions, fraternal or athletic groups, or [...] Total Score - Questions 1-9 10 09/15 [facility] of Occupat ional [facility] - Occupational Stress Questionnaire Answer Date [...] place to sleep or slept in a long term (including now)? Patient declined 06/15/2023 Housing Stability Vital Sign Answer Giovanni e Recorded In the last 12 months, was t here a time when you were not able to pay the mortgage or rent on time? No 08/12/2024 Number of Times Moved in the Last Year Not on fi le 08/12/2024 At any time in the past 12 [facility], were you homeless or living in a long term (including now)? No 08/12/2024 AUDIT-C Answer Date [...] on file Sexual Orientation Not on file documented as of this encounter Functional Status * AUDIT-C Score Answer Date of Assessment Author 0 11/21/2024 9:47 AM CESARIOT Kelley Gamble CMA * Question Answer Date of Assessment Author Q1: How often do you have a drink containing alcohol? Never 11/21/2024 9:47 AM CDT Whit Gamble CMA Q2: How many drinks containing alcohol do you have on a typical day when you are drinking? Patient does not drink 11/21/2024 9:47 AM CDT Whit Gamble CMA Q3: How often do you have six or more drinks on one occasion? Never 11/21/2024 9:47 AM CDT Whit Gamble CMA documented as of this encounter Plan of Treatment Upcoming Encounters Date Type Department Care Team (Late st Contact Info) Description 01/31/2025 10:00 AM CDT Hospital [facility] Per[facility] [address] [place] [address] Luther Garcia MD #[address] [address] 01/31/2025 10:00 AM CDT - 01/31/2025 10:30 AM CDT Surgery [facility] [address] [place] [address] Luthre Garcia MD #[address] [address] COLONOSCOPY Scheduled Procedures Name Priority Associated Diagnoses Date/Ti me COLONOSCOPY SCREENING FOR COLON CANCER 01/31/2025 10:00 AM CDT documented as of this encounter Visit Diagnoses Not on filedocumented in this encounter Additional Health Concerns Assessment Noted Time PHQ-9 Depression Total Score: 10 023 10:00 AM CDT documented as of this encounter Care Teams Riveter Helper Relationship Specialty Start Date End Date Priscilla Plummer APRN, FOREIGN EXCHANGE POSITION CLERK [address] [place] [address] PCP - General Advanced Practice Nurse 10/25/18 Luther Garcia MD #[address] [address] Consulting Physician Colon and Rectal Surgery 01/07/21 Mere Martinez APRN, FOREIGN EXCHANGE POSITION CLERK #[address] [address] Nurse Practitioner Advanced Practice Nurse 07/12/22 Jose Montemayor MD #2 [place] [address] Consulting Physician Neurology 02/02/22 documented as of this encounter
--- OUTSIDE RECORDS SUMMARY | 2024-11-26 13:34 | XMS_ITS | Encounter Summary ---
Author Organization [facility] Address [address] [place] [address] Phone Care Team Providers Care Supervisor Seaming Name Role Phone Priscilla Plummer APRN, CATHERINE Primary Care P rovider Luther Garcia MD Unavailable Mere Martinez APRN, BALLPOINT PENS ASSEMBLER Unavailable Jose Montemayor MD Unavailable [phone] Reason for Visit * Reason Comments Medication Refill Encounter Details Date Type Department Care Team (Late st Contact Info) Description 02/16/2021 Refill [facility] - Primary Care - Maria Del Carmen [address] [place] [address] Priscilla Plummer APRN, BALLPOINT PENS ASSEMBLER [address] [place] [place] [address] Medication Refill Social History Tobacco [...] have Coronavirus / COVID-19? No / Unsure 02/10/2021 9:09 AM CDT documented as of this encounter Miscellaneous Notes * Telephone Encounter - Jana Arevalo RN - 02/16/2021 3:50 PM CDT linaclotide (Linzess) 145 MCG Capsule 90 Capsule 0 01/28/2021 Refill too soon documented in this encounter Plan of Treatment Upcoming Encounters Date Type Department Care Team (Late st Contact Info) Description 01/31/2025 10:00 AM CDT [facility] Per[facility] [address] [place] [address] Luther Garcia MD #[address] [address] 01/31/2025 10:00 AM CDT - 01/31/2025 10:30 AM CDT [facility] [address] [place] [address] Luther Garcia MD #[address] [address] COLONOSCOPY Scheduled Procedures Name Priority Associated Diagnoses Date/Ti me COLONOSCOPY SCREENING FOR COLON CANCER 01/31/2025 10:00 AM CDT documented as of this encounter Visit Diagnoses Diagnosis Irritable bowel syndrome with constipation Irritable bowel syndrome documented in this encounter Additional Health Concerns Assessment Noted Time PHQ-9 Depression Total Score: 0 07/04/19 21 1:00 PM ENGINE SERVICE REPAIRER documented as of this encounter Care Teams Supervisor Seaming Relationship Specialty Start Date End Date Priscilla Plummer APRN, BALLPOINT PENS ASSEMBLER [address] [place] [address] PCP - General Advanced Practice Nurse 10/25/18 Luther Garcia MD #2 [facility] [address] [place] [address] Consulting Physician Colon and Rectal Surgery 01/07/21 Mere Martinez APRN, BALLPOINT PENS ASSEMBLER #2 [facility] [address] [place] [address] Nurse Practitioner Advanced Practice Nurse 07/12/22 Jose Montemayor MD #2 [place] [address] Consulting Physician Neurology 02/02/22 documented as of this encounter
== END 2024-11-26 13:28 | disposition home or self-care (01) ==
LOC: ANHBWCIMG 13:29
PROVIDERS: Visit Provider Orthopaedic Surgery
DX: M21.6X2 Other acquired deformities of left foot (principal)
CPT/HCPCS: 73630